=== PATIENT | male | born 1950 | race Caucasian/White ===

== ENCOUNTER 2016-07-16 20:32 | Emergency (ER) | payer MEDICARE ==
[~2016-07-16] VITALS: Ht 188 cm; Wt 95.0 kg
[~2016-07-16 20:32] MED LIST: ANDR4DIS TD; ATOM60 PO; CLOP75 PO; DEPA250T PO; DIOV320T PO; EZET10 PO; GEOD60CA PO; KLOR20TA6 PO; LEVO.1 PO; LORT5TAB PO; METF500 PO; NICO21T TD; PRIL40CA PO; ROSU5 PO; SUCR1TAB PO; TOPI50TA4 PO; TOPR25TA2 PO; VENL75XR PO
[2016-07-16] MEDS ORDERED: SODIUM CHLOR 0.9% 1000 ML INJ 1,000 ML IV SCH (20:34)
[2016-07-16 20:42] VITALS: BP 164/79; PULSE 102; RESP 20; TEMP 98.2; O2SAT 96
--- NOTE | 2016-07-16 20:43 | PD ---
HPI Chief Complaint: fall Time Seen by Provider: 20:40 Travel History International Travel<30 days: No Contact w/Intl Traveler<30days: No History of Present Illness HPI Patient comes emergency Department after having a witnessed trip and fall shortly prior to arrival. Denies any loss of consciousness. Patient denies any pain anywhere. Patient states he hit the back of his head. Patient does admit to drinking alcohol today. When asked how much he drank he says "too much ". Patient does report being on Plavix as well as aspirin daily. Denies any chest pain, shortness of breath, headache, change in vision, numbness or tingling anywhere, loss of bowel or bladder, abdominal pain, neck pain, or back pain. PFSH Past Medical History Arthritis: No Asthma: No Autoimmune Disease: No Anxiety: Yes Depression: Yes Heart Rhythm Problems: No Cancer: Yes (throat cancer) Cardiovascular Problems: Yes High Cholesterol: Yes Chemotherapy: No Chest Pain: No Congestive Heart Failure: No COPD: No Cerebrovascular Accident: No Diabetes: Yes (metformin) Diminished Hearing: Yes (BILATERAL HEARING AIDS ) Endocrine: Yes (low testerone levels on medication) GERD: Yes Genitourinary: No Hiatal Hernia: No Immune Disorder: No Insomnia: Yes Kidney Stones: No Musculoskeletal: Yes Psychiatric: Yes (takes geodon and effoxor) Reproductive: No Migraines: Yes Radiation Therapy: Yes Renal Failure: No Seizures: No Sickle Cell Disease: No Sleep Apnea: Yes (has bipap) Thyroid Disease: Yes (on synthroid) Ulcer: No Past Surgical History Abdominal Surgery: No AICD: No Arteriovenous Shunt: No Cardiac Surgery: Yes (carotid stents) Ear Surgery: No Endocrine Surgery: No Eye Surgery: No Genitourinary Surgery: No Gynecologic Surgery: No Insulin Pump: No Joint Replacement: No Oral Surgery: Yes (throat cancer removal 1999) Pacemaker: No Thoracic Surgery: No Social History Alcohol Use: No Tobacco Use: Yes (1 PPD) Substance Use: No Allergies-Medications (Allergen,Severity, Reaction): Coded Allergies: No Known Allergies (Verified , 07/16/16) Reported Meds & Prescriptions Reported Meds & Active Scripts Active Habitrol 21 mg/24 Hr Patch (Nicotine) 1 Patch Patch 1 Patch TD DAILY Effexor-Xr (Venlafaxine HCl) 75 Mg Caper 300 Mg PO DAILY Lortab 5/500 (Acetaminophen/Hydrocodone Bitart) 5 Mg/500 Mg Tab 1 Tab PO Q6HPRN FOR PAIN Reported Androderm (Testosterone) 4 Mg/24 Hr Dis 1 Patch TD DAILY Synthroid 100 mcg (Levothyroxine Sodium) 100 Mcg Tab 100 Mcg PO DAILY Prilosec 40 mg cap (Omeprazole) 40 Mg Cap 40 Mg PO DAILY Glucophage 500 mg (Metformin HCl) 500 Mg Tab 500 Mg PO BIDPC Klor-Con M20 (Potassium Chloride Microencaps) 20 Meq Tab 20 Meq PO Sucralfate 1 Gm Tab 1 Gm PO TIDACHS Take with water on an empty stomach. To reduce the potential of adversely affecting the absorption of other drugs, take other drugs 2 hours prior to Sucralfate. Geodon (Ziprasidone) 60 Mg Cap 60 Mg PO HS Topamax (Topiramate) 50 Mg Tab 50 Mg PO BID Diovan 320 mg (Valsartan) 320 Mg Tab 320 Mg PO DAILY Zetia (Ezetimibe) 10 Mg Tab 10 Mg PO DAILY Toprol Xl (Metoprolol Succinate) 25 Mg Tabcr 0 PO DAILY UNKNOWN DOSE Strattera (Atomoxetine HCl) 60 Mg Cap 75 Mg PO BID Crestor (Rosuvastatin Calcium) 5 Mg Tab 0 PO DAILY UNKNOWN DOSE Plavix (Clopidogrel Bisulfate) 75 Mg Tab 75 Mg PO DAILY Depakote (Divalproex Sodium) 250 Mg Yasmin 300 Mg PO DAILY Review of Systems ROS Limitations: Intoxication Except as stated in HPI: all other systems reviewed are Neg Physical Exam Exam Limitations: Intoxication Narrative GENERAL: Well-developed, well nourished, in no acute distress, and non-ill appearing. SKIN: Focused skin assessment warm and dry. No traumatic lesions noted. HEAD: Atraumatic. Normocephalic. EYES: Pupils equal and round. EOMI. No scleral icterus. No injection or drainage. ENT: No nasal bleeding or discharge. Mucous membranes pink and moist. No crepitus, step-off, Tenderness, or flattening throughout the face or cheek bones. NECK: Trachea midline. C-collar in place. CARDIOVASCULAR: Regular rate and rhythm. No murmur appreciated. RESPIRATORY: No accessory muscle use. No respiratory distress. Clear to auscultation. Breath sounds equal bilaterally. GASTROINTESTINAL: Abdomen soft, non-tender, nondistended. Hepatic and splenic margins not palpable. No pulsatile mass. MUSCULOSKELETAL: No obvious deformities. No clubbing. No cyanosis. No edema. Full range of motion is able to move all extremities without difficulty. NEUROLOGICAL: Awake and alert. No obvious cranial nerve deficits. Motor grossly within normal limits. Normal speech. PSYCHIATRIC: Appropriate mood and affect; insight and judgment normal. Data Data Last Documented VS Vital Signs Date Time Temp Pulse Resp B/P Pulse Ox O2 Delivery O2 Flow Rate FiO2 07/16/16 23:03 105 22 167/82 99 Room Air 07/16/16 20:46 2 07/16/16 20:42 98.2 Orders Basic Metabolic Panel (Bmp) (07/16/16 20:34) Complete Blood Count With Diff (07/16/16 20:34) Prothrombin Time / Inr (Pt) (07/16/16 20:34) Act Partial Throm Time (Ptt) (07/16/16 20:34) Iv Access Insert/Monitor (07/16/16 20:34) Ecg Monitoring (07/16/16 20:34) Oximetry (07/16/16 20:34) Sodium Chlor 0.9% 1000 Ml Inj (Ns 1000 M (07/16/16 20:34) Sodium Chloride 0.9% Flush (Ns Flush) (07/16/16 20:45) Ct Brain W/O Iv Contrast(Rout) (07/16/16 ) Ct Facial Bones W/O Iv Cont (07/16/16 ) Ct Cerv Spine W/O Contrast (07/16/16 ) Alcohol (Ethanol) (07/16/16 20:34) Lorazepam (Ativan) (07/16/16 22:30) Labs Laboratory Tests Test 07/16/16 20:35 White Blood Count 5.9 TH/MM3 Red Blood Count 6.47 MIL/MM3 Hemoglobin 19.9 GM/DL Hematocrit 57.6 % Mean Corpuscular Volume 89.0 FL Mean Corpuscular Hemoglobin 30.8 PG Mean Corpuscular Hemoglobin 34.6 % Concent Red Cell Distribution Width 15.1 % Platelet Count 157 TH/MM3 Mean Platelet Volume 8.5 FL Neutrophils (%) (Auto) 75.2 % Lymphocytes (%) (Auto) 16.5 % Monocytes (%) (Auto) 7.5 % Eosinophils (%) (Auto) 0.3 % Basophils (%) (Auto) 0.5 % Neutrophils # (Auto) 4.4 TH/MM3 Lymphocytes # (Auto) 1.0 TH/MM3 Monocytes # (Auto) 0.4 TH/MM3 Eosinophils # (Auto) 0.0 TH/MM3 Basophils # (Auto) 0.0 TH/MM3 CBC Comment DIFF FINAL Differential Comment Prothrombin Time 10.7 SEC Prothromb Time International 1.0 RATIO Ratio Activated Partial 27.9 SEC Thromboplast Time Sodium Level 139 MEQ/L Potassium Level 3.6 MEQ/L Chloride Level 98 MEQ/L Carbon Dioxide Level 24.4 MEQ/L Anion Gap 17 MEQ/L Blood Urea Nitrogen 11 MG/DL Creatinine 1.23 MG/DL Estimat Glomerular Filtration 59 ML/MIN Rate Random Glucose 98 MG/DL Calcium Level 8.7 MG/DL Ethyl Alcohol Level 339 MG/DL MDM Medical Decision Making Medical Screen Exam Complete: Yes Emergency Medical Condition: Yes Differential Diagnosis Fracture, strain, closed head injury, intracranial hemorrhage, other Narrative Course Patient was seen and examined. Labs and radiological studies were obtained and reviewed. Discussed patient with Dr. Sutherland, who is in agreement with plan of care and disposition. Patient will be monitored in the emergency department until clinically sober and able to ambulate on their own or until a sober responsible adult comes to pick them up. RN is aware of this. Diagnosis Primary Impression: Closed head injury Qualified Code: S09.90XA - Closed head injury, initial encounter Additional Impressions: Alcohol intoxication Qualified Code: F10.129 - Alcohol intoxication, with unspecified complication Bilateral carotid artery stenosis Fall Qualified Code: W19.XXXA - Fall, initial encounter Patient Instructions: Abuse of Alcohol (ED), Fall Prevention (DC), General Instructions, Head Injury (ED) Additional Instructions: Follow-up with your primary care physician for reevaluation in one to 2 days. Cut back on drinking. Return to the emergency department if symptoms get worse. Disposition: 01 DISCHARGE HOME Condition: Stable Sushil Farr Jul 16, 2016 20:43
[2016-07-16] MEDS ORDERED: SODIUM CHLORIDE 0.9% FLUSH 10 ML FLUSH IV FLUSH PRN (20:45)
[2016-07-16 20:47] LABS: AUTOMATED NEUTROPHIL # 4.4 TH/MM3 (1.8-7.7); BASOPHIL % 0.5 % (0.0-2.0); EOSINOPHIL % 0.3 % (0.0-4.0); HEMATOCRIT 57.6 % (39.0-51.0); HEMO FLAGS DIFF FINAL; LYMPH % 16.5 % (9.0-44.0); MEAN CORPUSCULAR HEMOGLOBIN 30.8 PG (27.0-34.0); MEAN CORPUSCULAR HGB CONC 34.6 % (32.0-36.0); MONO % 7.5 % (0.0-8.0); NEUT % 75.2 % (16.0-70.0); PLATELET COUNT 157 TH/MM3 (150-450); RED BLOOD COUNT 6.47 MIL/MM3 (4.50-5.90); RED CELL DISTRIBUTION WIDTH 15.1 % (11.6-17.2); WHITE BLOOD COUNT 5.9 TH/MM3 (4.0-11.0)
[2016-07-16 20:59] LABS: APTT (PATIENT) 27.9 SEC (24.3-30.1); PROTHROMBIN TIME - PATIENT 10.7 SEC (9.8-11.6)
[2016-07-16 21:07] LABS: BICARBONATE 24.4 MEQ/L (21.0-32.0); POTASSIUM 3.6 MEQ/L (3.5-5.1)
--- NOTE | 2016-07-16 21:19 | RADRPT ---
EXAM DATE/TIME: 07/16/2016 21:07 [facility] COMPARISON: CT BRAIN W/O CONTRAST, October 18, 2015, 15:24. INDICATIONS : Trauma; fall RADIATION DOSE: 61.23 CTDIvol (mGy) MEDICAL HISTORY : Cardiovascular disease. Hypertension. Carcinoma, not otherwise specified. SURGICAL HISTORY : Non-responsive. ENCOUNTER: Initial ACUITY: 1 day PAIN SCALE: 5/10 LOCATION: Bilateral cranial TECHNIQUE: Multiple contiguous axial images were obtained of the head. Using automated exposure control and adj ustment of the mA and/or kV according to patient size, radiation dose was kept as low as reasonably a chievable to obtain optimal diagnostic quality images. FINDINGS: CEREBRUM: The ventricles are normal for age. No evidence of midline shift, mass lesion, hemorrhage or acute in farction. No extra-axial fluid collections are seen. POSTERIOR FOSSA: The cerebellum and brainstem are intact. The 4th ventricle is midline. The cerebellopontine angle i s unremarkable. EXTRACRANIAL: The visualized portion of the orbits is intact. SKULL: The calvaria is intact. No evidence of skull fracture. CONCLUSION: Normal examination. Colt Tijerina Jr., MD on July 16, 2016 at 21:15 Board Certified Radiologist. This report was verified electronically.
--- NOTE | 2016-07-16 21:28 | RADRPT ---
EXAM DATE/TIME: 07/16/2016 21:07 [facility] COMPARISON: No previous studies available for comparison. INDICATIONS : Trauma; fall. RADIATION DOSE: 42.99 CTDIvol (mGy) MEDICAL HISTORY : Carcinoma, not otherwise specified. Cardiovascular disease Hypertension. SURGICAL HISTORY : None. ENCOUNTER: Initial ACUITY: 1 day PAIN SCALE: 5/10 LOCATION: Bilateral cervical TECHNIQUE: Volumetric scanning of the cervical spine was performed. Multiplanar reconstructions in the sagittal, coronal and oblique axial planes were performed. Using automated exposure control and adjustment o f the mA and/or kV according to patient size, radiation dose was kept as low as reasonably achievable to obtain optimal diagnostic quality images. FINDINGS: The study is motion degraded. VERTEBRAE: Normal vertebral body height. ALIGNMENT: There is a curvature of the cervical spine which is felt to be positional in nature. Bilateral carotid artery stents. C2-C3: A central disc bulge without abutment of the cord or central canal stenosis. Bony uncovertebral hyper trophy without neural foraminal narrowing. C3-C4: A central disc bulge without abutment of the cord or central canal stenosis. Prominent bony uncoverte bral hypertrophy on the left with significant narrowing of the neural foramen. The right is patent. C4-C5: A broad-based disc osteophyte complex without abutment of the cord. Narrowing of the lateral recesses bilaterally. Bony uncovertebral hypertrophy generate right neural foraminal narrowing. The left is p atent. C5-C6: There is a broad-based disc osteophyte complex that flattens the ventral portion of the cord and narr ows the lateral recesses bilaterally. Bony uncovertebral hypertrophy narrows both neural foramen. C6-C7: A broad-based disc osteophyte complex abuts the ventral portion of the cord and narrows the lateral r ecesses bilaterally. Prominent bony uncovertebral hypertrophy significantly narrows both neural hanh en. C7-T1: The bony spinal canal is normal in size. No evidence of disc bulge or herniation. The neural forami na are bilaterally patent. CONCLUSION: 1. No acute abnormality. 2. Pronounced multilevel degenerative changes as detailed above. 3. Bilateral carotid artery stents. Colt Tijerina Jr., MD on July 16, 2016 at 21:22 Board Certified Radiologist. This report was verified electronically.
--- NOTE | 2016-07-16 21:46 | RADRPT ---
EXAM DATE/TIME: 07/16/2016 21:07 [facility] COMPARISON: No previous studies available for comparison. INDICATIONS : Trauma; fall. RADIATION DOSE: 56.75 CTDIvol (mGy) MEDICAL HISTORY : Cardiovascular disease. Hypertension. SURGICAL HISTORY : None. ENCOUNTER: Initial ACUITY: 1 day PAIN SCORE: 5/10 LOCATION: Bilateral facial TECHNIQUE: Volumetric scanning of the facial bones was performed. Using automated exposure control and adjustme nt of the mA and/or kV according to patient size, radiation dose was kept as low as reasonably achiev able to obtain optimal diagnostic quality images. FINDINGS: Motion degraded. ORBITS: The orbital and infraorbital osseous structures are intact. The retroconal structures have a normal configuration. No radiopaque foreign bodies are seen. NASAL BONE: The nasal bone and maxillary spine are intact ZYGOMATIC ARCHES: Symmetric without evidence of fracture. SINUSES: The maxillary, ethmoid and frontal sinuses are intact. No air-fluid levels seen. NASAL CAVITY: The nasal septum is intact and midline. The lacrimal ducts are intact. SOFT TISSUES: No radiopaque foreign bodies seen. No soft-tissue swelling is seen. INTRACRANIAL: No intracranial air seen. CRIBIFORM PLATE: Grossly intact. CONCLUSION: 1. Motion degraded exam. 2. No acute abnormality. Colt Tijerina Jr., MD on July 16, 2016 at 21:41 Board Certified Radiologist. This report was verified electronically.
[2016-07-16] MEDS ORDERED: LORazepam 1 MG TAB PO ONE (22:30)
[2016-07-16 23:03] VITALS: BP 167/82; PULSE 105; RESP 22; O2SAT 99
== END 2016-07-17 05:30 | disposition home or self-care (01) ==
LOC: NEPE 20:32 → NEPD 07-17 05:30
DX: S09.90XA Unspecified injury of head, initial encounter (principal); F10.129 Alcohol abuse with intoxication, unspecified; I65.23 Occlusion and stenosis of bilateral carotid arteries; E11.9 Type 2 diabetes mellitus without complications; G47.30 Sleep apnea, unspecified; F17.210 Nicotine dependence, cigarettes, uncomplicated; Y90.8 Blood alcohol level of 240 mg/100 ml or more; W01.0XXA Fall on same level from slipping, tripping and stumbling without subsequent striking against object, initial encounter; Z79.84 Long term (current) use of oral hypoglycemic drugs
CPT/HCPCS: 70450; 70486; 72125; 80048; 80307; 85025; 85610; 85730; 99284; J7030

== ENCOUNTER 2016-08-06 15:15 | Inpatient (IN) | payer MEDICARE ==
[~2016-08-06] VITALS: Ht 188 cm; Wt 79.8 kg
[2016-08-06 18:39] VITALS: BP 143/83; PULSE 64; RESP 16; TEMP 98; O2SAT 98
[2016-08-06] MEDS ORDERED: ACETAMINOPHEN 325 MG TAB PO PRN (18:45)
[2016-08-06] MEDS ORDERED: BENZTROPINE MESYLATE 2 MG/2 ML VIAL IM PRN (18:45)
[2016-08-06] MEDS ORDERED: BENZTROPINE MESYLATE 1 MG TAB PO PRN (18:45)
[2016-08-06] MEDS ORDERED: MAGNESIUM HYDROXIDE SUSP 30 ML CUP PO PRN (18:45)
[2016-08-06] MEDS ORDERED: GLUCAGON 1 MG/ML VIAL OTHER PRN (18:45)
[2016-08-06] MEDS ORDERED: ALUMINUM/MAGNESIUM/SIMETH 30 ML CUP PO PRN (18:45)
[2016-08-06] MEDS ORDERED: DEXTROSE 50% IN WATER 50 ML VIAL(D50) IV PUSH PRN (18:45)
[2016-08-06] MEDS: INSULIN ASPART SUPPLEMENTAL SCALE SQ SCH (20:39)
[2016-08-06] MEDS: hydrOXYzine HCL 50 MG TAB PO PRN ×2 (20:41→20:56)
[2016-08-06] MEDS: metroNIDAZOLE 500 MG TAB PO SCH (21:07)
[2016-08-07] MEDS ORDERED: ATOM60 PO ×2 (03:37→04:39)
[2016-08-07] MEDS ORDERED: PLAV75TA29 PO ×2 (03:39→04:41)
[2016-08-07] MEDS ORDERED: DIVA250ER PO ×3 (03:43→04:43)
[2016-08-07] MEDS ORDERED: METF500T PO ×2 (03:49→04:45)
[2016-08-07] MEDS ORDERED: ZETI10TA5 PO ×2 (03:54→04:28)
[2016-08-07] MEDS ORDERED: TOPR25TA PO (03:58)
[2016-08-07] MEDS ORDERED: OMEP40CA2 PO ×2 (04:05→04:09)
[2016-08-07] MEDS ORDERED: POTA20TA5 PO ×2 (04:13→04:36)
[2016-08-07] MEDS ORDERED: SUCR1TAB PO (04:50)
[2016-08-07] MEDS ORDERED: LEVO.1 PO (04:51)
[2016-08-07] MEDS ORDERED: ANDR4DIS T-DERMAL (04:53)
[2016-08-07] MEDS ORDERED: METO25TA6 PO (04:56)
[2016-08-07] MEDS ORDERED: TOPA50TA7 PO (04:57)
[2016-08-07] MEDS ORDERED: DIOV320T PO (04:58)
[2016-08-07] MEDS ORDERED: GEOD60CA PO (05:00)
[2016-08-07 05:33] VITALS: BP 156/73; PULSE 66; RESP 18; TEMP 97.8
[2016-08-07 06:00] VITALS: BP 156/73; PULSE 66; RESP 18; TEMP 97.8; O2SAT 96
[2016-08-07] MEDS: metroNIDAZOLE 500 MG TAB PO SCH ×3 (06:09→21:09)
[2016-08-07] MEDS: LEVOTHYROXINE SODIUM 100 MCG TAB PO SCH (06:09)
[2016-08-07] MEDS: INSULIN ASPART SUPPLEMENTAL SCALE SQ SCH ×4 (06:11→21:00)
[2016-08-07] MEDS: REMOVE OLD PATCH T-DERMAL SCH (09:00)
[2016-08-07] MEDS: CLOPIDOGREL 75 MG TAB PO SCH (09:16)
[2016-08-07] MEDS: metFORMIN HCL 500 MG TAB PO SCH ×2 (09:16→17:13)
[2016-08-07] MEDS: METOPROLOL SUCCINATE 25 MG EXTENDED RELEASE TAB PO SCH (09:16)
[2016-08-07] MEDS: NICOTINE 21 MG/24 HR PATCH T-DERMAL SCH (09:17)
[2016-08-07 09:37] LABS: AUTOMATED NEUTROPHIL # 4.5 TH/MM3 (1.8-7.7); BASOPHIL % 0.5 % (0.0-2.0); EOSINOPHIL % 0.5 % (0.0-4.0); HEMATOCRIT 49.2 % (39.0-51.0); HEMO FLAGS DIFF FINAL; LYMPH % 16.7 % (9.0-44.0); MEAN CELL VOLUME 90.1 FL (80.0-100.0); MEAN CORPUSCULAR HEMOGLOBIN 30.1 PG (27.0-34.0); MEAN CORPUSCULAR HGB CONC 33.5 % (32.0-36.0); NEUT % 74.3 % (16.0-70.0); PLATELET COUNT 159 TH/MM3 (150-450); RED BLOOD COUNT 5.46 MIL/MM3 (4.50-5.90); RED CELL DISTRIBUTION WIDTH 14.6 % (11.6-17.2); WHITE BLOOD COUNT 6.1 TH/MM3 (4.0-11.0)
[2016-08-07 10:22] LABS: ALT (GPT) 58 U/L (12-78); ANION GAP 8 MEQ/L (5-15); AST (GOT) 53 U/L (15-37); BICARBONATE 27.6 MEQ/L (21.0-32.0); BLOOD UREA NITROGEN 17 MG/DL (7-18); CHLORIDE 105 MEQ/L (98-107); GLOMERULAR FILTRATION RATE 76 ML/MIN (>89); POTASSIUM 3.1 MEQ/L (3.5-5.1); SODIUM (NA) 141 MEQ/L (136-145)
[2016-08-07 10:31] LABS: ALKALINE PHOSPHATASE 77 U/L (45-117); HDL CHOLESTEROL 37.1 MG/DL (40.0-60.0); LDL CHOLESTEROL 39 MG/DL (0-99); TOTAL BILIRUBIN ADULT 0.6 MG/DL (0.2-1.0)
[2016-08-07] MEDS ORDERED: ALUMINUM/MAGNESIUM/SIMETH 30 ML CUP PO PRN (12:45)
[2016-08-07] MEDS ORDERED: MAGNESIUM HYDROXIDE SUSP 30 ML CUP PO PRN (12:45)
[2016-08-07] MEDS ORDERED: ACETAMINOPHEN 325 MG TAB PO PRN (12:45)
--- NOTE | 2016-08-07 13:29 | HHI.HP ---
Provisional Diagnosis Admission Date August 06, 2016 at 15:15 [place] I. 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 Express and informed consent means consent voluntarily given in writing, by a competent person, after sufficient explanation and disclosure of the subject matter involved to enable the person to make a knowing and willful decision without any element of force, fraud, deceit, duress, or other form of constraint or coercion. This person is 18 years of age or older, is not now known to be incompetent to consent to treatment with a guardian advocate, and does not have a health care surrogate or proxy currently making medical treatment decisions. I have found this person to be one of the following: [] Competent to provide express and informed consent, as defined above, for voluntary admission to this facility and is competent to provide express and informed consent for treatment. He/she has the consistent capacity to make well reasoned, willful, and knowing decisions concerning his or her medical or mental health treatment. The person fully and consistently understands the purpose of the admission for examination/placement and is fully capable of personally exercising all rights assured [place] [] Incompetent to provide express and informed consent to voluntary admission, and this is incompetent to provide express and informed consent to treatment. The person must be transferred to involuntary status and a petition for a guardian advocate filed with the Circuit Court. [xx] Refusing to provide express and informed consent to voluntary admission but is competent to provide express and informed consent for treatment. The person must be discharged or transferred to involuntary status. Form shall be completed within 24 hours of a person's arrival at the receiving facility and filed in the clinical record of each person: 1. Admitted on a voluntary basis 2. Permitted to provide express and informed consent to his/her own treatment 3. Allowed to transfer from involuntary to voluntary status 4. Prior to permitting a person to consent to his or her own treatment after having been previously found incompetent to consent to treatment. History of Present Illness Capacity: Lacks Capacity (patient lacks capacity to sign voluntary admission, patient has capacity to consent for medications) HPI Patient is a 66-year-old white male who comes here as a transfer from [facility] after being admitted there under Esposito act on 07/28/16. Patient was found by his estranged in his bathtub unconscious, was intubated at the scene by the paramedics, was extubated about 2-3 days later with diagnosis of sepsis and acute respiratory failure. There is a Esposito act was initiated on 08/02/16 at 1:[address] Lackey stating suicidal tendencies states second intentional suicide attempt since September 2059. Ear toxicology that facility positive for benzodiazepines. Of interest patient was admitted to [facility] 10/18/15 through for overdose of baclofen. . Patient seen in consultation at that time by Dr. Canales cool allow patient to be discharged once medically stable with supportive patient's at that time. Patient was subsequently seen for a fall in our ED on 07/16/16 if that time blood alcohol level of 339. Patient giving vague history of being at [facility] detox prior to the overdose. He also gave long history of alcohol misuse with daily drinking, so low drinking, a.m. drinking, passing out spells, a states she has been in detox and in rehabilitation in the past also. He acknowledges misuse of opiates in the past. He denies physical or sexual abuse as a child denies mental illness in his family of origin. He does adamantly refused to acknowledge these is suicide attempts stating he uses the baclofen to get high and that he only slept in his bathtub. However he does acknowledge a history of depression that he does see a psychiatrist through [facility]. 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 In any event at this time patient does meet criteria for involuntary psychiatric hospitalization under the Esposito act I'll do first opinion requests second opinion. I feel he does have capacity to sign for his medications. We will have hospitalist consult with us of this gentleman. We'll continue him on his trazodone that he states he needs for sleep at 200 mg at bedtime. We'll continue other medications per the med reconciliation also. Level counselor attempt to reach patient's to arrange a meeting for tomorrow morning to discuss diagnosis treatment and recommendations upon discharge Review of Systems Constitutional: DENIES: Diaphoretic episodes, Fatigue, Fever, Weight gain, Weight loss, Chills, Dizziness, Change in appetite, Night Sweats Endocrine: DENIES: Heat/cold intolerance, Polydipsia, Polyuria, Polyphagia Eyes: DENIES: Blurred vision, Diplopia, Eye inflammation, Eye pain, Vision loss , Photosensitivity, Double Vision Ears, nose, mouth, throat: DENIES: Tinnitus, Hearing loss, Vertigo, Nasal discharge, Oral lesions, Throat pain, Hoarseness, Ear Pain, Running Nose, Epistaxis, Sinus Pain, Toothache, Odynophagia Respiratory: DENIES: Apneas, Cough, Snoring, Wheezing, Hemoptysis, Sputum production, Shortness of breath Cardiovascular: DENIES: Chest pain, Palpitations, Syncope, Dyspnea on Exertion , PND, Lower Extremity Edema, Orthopnea, Claudication Gastrointestinal: DENIES: Abdominal pain, Black stools, Bloody stools, Constipation, Diarrhea, Nausea, Vomiting, Difficulty Swallowing, Anorexia Genitourinary: DENIES: Sexual dysfunction, Urinary frequency, Urinary incontinence, Urgency, Hematuria, Dysuria, Nocturia, Penile Discharge, Testicular Pain, Testicular Swelling Musculoskeletal: DENIES: Joint pain, Muscle aches, Stiffness, Joint Swelling, Back pain, Neck pain Integumentary: DENIES: Abnormal pigmentation, Nail changes, Pruritus, Rash Hematologic/lymphatic: DENIES: Bruising, Lymphadenopathy Immunologic/allergic: DENIES: Eczema, Urticaria Neurologic: DENIES: Abnormal gait, Headache, Localized weakness, Paresthesias, Seizures, Speech Problems, Tremor, Poor Balance Psychiatric: COMPLAINS OF: Depression Past Psych History Psychological trauma history Denies physical or sexual abuse Violence risk - others (6 mos) Low Violence risk - self (6 mos) 2 suicide attempts within 1 year Substance Abuse History Drugs/Alcohol past 12 months Active alcohol abuser Past Family Social History Coded Allergies: No Known Allergies (Verified , 07/16/16) Past Medical History Multiple complex please see MedSur assessment Active Scripts Nicotine (Habitrol 21 mg/24 Hr Patch)1 Patch Patch1 Patch TD DAILY #30 PATCH Prov:Estephania Lemos MD 10/23/15 Venlafaxine Hcl (Effexor-Xr)75 Mg [id number] Mg PO DAILY #30 CAP.SR Prov:Estephania Lemos MD 10/23/15 Hydrocodone-Acetaminophen (Lortab 500)5 Mg/500 Mg Tab1 Tab PO Q6HPRN #20 FOR PAIN Prov:Kong Mathis MD 07/19/09 Reported Medications Ziprasidone (Geodon)60 Mg Cap60 Mg PO HS 08/07/16 Valsartan (Diovan)320 Mg [id number] Mg PO DAILY 08/07/16 Topiramate (Topamax)50 Mg Tab50 Mg PO BID 08/07/16 Metoprolol Succinate ER 24 HR 25 Mg Tab25 Mg PO DAILY 08/07/16 Testosterone Patch (Androderm Patch)4 Mg/24 Hr Patch1 Patch T-DERMAL HS 08/07/16 Levothyroxine (Synthroid)100 Mcg Won863 Mcg PO DAILY 08/07/16 Sucralfate 1 Gm Tab1 Gm PO TIDACHS on empty stomach 08/07/16 Metformin 500 Mg [id number] Mg PO BIDPC With meals 08/07/16 Divalproex ER (Depakote ER)250 Mg [id number] Mg PO DAILY 08/07/16 Clopidogrel (Plavix)75 Mg Tab75 Mg PO DAILY 08/07/16 Atomoxetine (Strattera)60 Mg Cap75 Mg PO BID 08/07/16 Potassium Chloride Microencaps 20 Meq Tab20 Meq PO 08/07/16 Ezetimibe (Zetia)10 Mg Tab10 Mg PO DAILY 08/07/16 Omeprazole 40 Mg Cap40 Mg PO DAILY #30 CAP Ref 0 08/07/16 Current Medications Medications (Trade) Dose Ordered Sig/Jackie Route Start Time Stop Time Status Last Admin (D50w (Vial) Inj) 25 ml UNSCH PRN IV PUSH 08/06/16 18:45 (Glucagon Inj) 1 mg UNSCH PRN OTHER 08/06/16 18:45 (Tylenol) 650 mg Q4H PRN PO 08/06/16 18:45 (Milk Of Magnesia Liq) 30 ml DAILY PRN PO 08/06/16 18:45 (Mag-Al Plus Susp Liq) 30 ml Q6H PRN PO 08/06/16 18:45 (Habitrol 21 Mg Patch.24 Hr) 1 patch DAILY T-DERMAL 08/07/16 09:00 08/07/16 09:17 (Atarax) 25 mg Q6H PRN PO 08/06/16 18:45 08/06/16 20:56 (Cogentin) 1 mg Q12H PRN PO 08/06/16 18:45 (Cogentin Inj) 1 mg Q12H PRN IM 08/06/16 18:45 Miscellaneous Information 1 DAILY T-DERMAL 08/07/16 09:00 (Synthroid) 100 mcg DAILY@0600 PO 08/07/16 06:00 08/07/16 06:09 (Toprol Xl) 25 mg DAILY PO 08/07/16 09:00 08/07/16 09:16 (Glucophage) 500 mg BIDPC PO 08/07/16 09:00 08/07/16 09:16 (Plavix) 75 mg DAILY PO 08/07/16 09:00 08/07/16 09:16 (Flagyl) 500 mg Q8HR PO 08/06/16 22:00 08/13/16 21:59 08/07/16 06:09 Family History Patient denies mental health issues and family of origin Social History Patient was his second of 7 years Patient's Strengths (min. 2) Patient verbal cooperative irritable access healthcare Physical Exam Patient seen screen a [facility] exam reviewed and agreed with vital signs blood pressure 156/73 pulse 66 respirations 18 Vital Signs Vital Signs Date Time Temp Pulse Resp B/P Pulse Ox O2 Delivery O2 Flow Rate FiO2 08/07/16 06:00 97.8 66 18 156/73 96 I/O 08/06/16 08/06/16 08/07/16 08:00 16:00 00:00 Intake Total 240 ml Balance 240 ml Mental Status Examination Alert oriented thin slender balding white male with kyle hair agreed.. Speaking with a somewhat hoarse whisper. He is calm cooperative is somewhat guarded. With fair eye contact Appearance Somewhat disheveled Speech: Slow, Other (course) Orientation: x3 Memory: Unremarkable Thought Process: Logical, Organized Thought Content: Unremarkable Language Sami [employer] Knowledge Fair Hallucination Type: None Attention and Concentration: Other (fair) Suicidal Ideation: No (denies) Previous Suicide Attempts: Yes Homicidal Ideation: No (denies) Previous Homicide Attempts: No (denies) Insight: Poor Judgment: Poor Affect: Other (decreased range and intensity) Mood: Sad Motor Activity: Normal gait Assessment & Plan Problem List: (1) Alcohol dependence ICD Code: F10.20 (2) Major depressive disorder, recurrent severe without psychotic features ICD Code: F33.2 Assessment & Plan Estimated LOS: I've to 7 days patient meets criteria for involuntary psychiatric hospitalization. I'll do first opinion request second opinion. I feel he has capacity to sign for medications. We'll attempt to reach patient's to arrange a meeting for tomorrow morning. Discharge Planning To be determined Request HC Surrog/Guard Advoc?: No Fredi Higginbotham MD August 07, 2016 13:29
--- NOTE | 2016-08-07 14:30 | PD.CONS ---
HPI Service [facility] Hospitalists Consult Requested By Psychiatry team Reason for Consult S/p Baclofen OD. Assist in management of medical condition. Primary Care Physician Ricardo Ramos, Diagnoses: History of Present Illness Patient 65 year old male with past medical history of throat cancer status post resection and radiation in 1999, hypothyroidism, diabetes mellitus, depression who came in as a transfer from [facility] after being admitted under Esposito act on 07/28/16. As per review of records, patient was found by his estranged in his bathtub unconscious, was intubated at the scene by paramedics, was extubated about 2-3 days later with diagnosis of sepsis and acute respiratory failure. Initiation of Esposito act 08/02/16 secondary to suicidal indication/tendencies, states second intentional suicide attempt since September 2015. Urine toxicology from previous hospital showed positive for benzodiazepines. Patient was admitted to [facility] 10/18/15 secondary to baclofen overdose, 27 missing pills as per according to review of the records. Patient was also seen in the hospital ED with alcohol blood level 339. He is now admitted to inpatient psychiatry unit for further evaluation. Consulted for medical management. Patient seen and examined. Reports he is doing well. States that he doesn't plan to hurt himself he just took baclofen to relieve his pain. Patient admits to medical condition and having hypothyroidism, diabetes. He also admitted to alcohol use about 6 packs of beer or 2 pints of hard liquor. States he was at [facility] for detox, wherein his last drink was approximately about 1-2 weeks ago. Patient denies any withdrawal seizures or episode of any seizures from alcohol use. Denies pain and discomfort. Denies SOB/ dyspnea. Denies chest pain, palpitations, headaches, dizziness. Denies fevers, chills, n/ v/d. Denies hematuria, dysuria. Review of Systems Except as stated in HPI: all other systems reviewed are Neg Past Family Social History Allergies: Coded Allergies: No Known Allergies (Verified , 07/16/16) Past Medical History Diabetes Hypothyroidism Throat cancer status post radiation 1999 Depression Past Surgical History Right knee surgery Bilateral carotid Stent placement in his throat with radiation Surgery for throat cancer Reported Medications Reported Meds & Active Scripts Active Habitrol 21 mg/24 Hr Patch (Nicotine) 1 Patch Patch 1 Patch TD DAILY Effexor-Xr (Venlafaxine HCl) 75 Mg Caper 300 Mg PO DAILY Lortab 5/500 (Acetaminophen/Hydrocodone Bitart) 5 Mg/500 Mg Tab 1 Tab PO Q6HPRN FOR PAIN Reported Geodon (Ziprasidone) 60 Mg Cap 60 Mg PO HS Diovan (Valsartan) 320 Mg Tab 320 Mg PO DAILY Topamax (Topiramate) 50 Mg Tab 50 Mg PO BID Metoprolol Succinate ER 24 HR (Metoprolol Succinate) 25 Mg Tab 25 Mg PO DAILY Androderm Patch (Testosterone) 4 Mg/24 Hr Patch 1 Patch T-DERMAL HS Synthroid (Levothyroxine Sodium) 100 Mcg Tab 100 Mcg PO DAILY Sucralfate 1 Gm Tab 1 Gm PO TIDACHS on empty stomach Metformin (Metformin HCl) 500 Mg Tab 500 Mg PO BIDPC With meals Depakote ER (Divalproex Sodium) 250 Mg Yasmin 300 Mg PO DAILY Plavix (Clopidogrel Bisulfate) 75 Mg Tab 75 Mg PO DAILY Strattera (Atomoxetine HCl) 60 Mg Cap 75 Mg PO BID Potassium Chloride Microencaps 20 Meq Tab 20 Meq PO Zetia (Ezetimibe) 10 Mg Tab 10 Mg PO DAILY Omeprazole 40 Mg Cap 40 Mg PO DAILY Active Ordered Medications Current Medications Medications (Trade) Dose Ordered Sig/Jackie Route Start Time Stop Time Status Last Admin (D50w (Vial) Inj) 25 ml UNSCH PRN IV PUSH 08/06/16 18:45 (Glucagon Inj) 1 mg UNSCH PRN OTHER 08/06/16 18:45 (Habitrol 21 Mg Patch.24 Hr) 1 patch DAILY T-DERMAL 08/07/16 09:00 08/07/16 09:17 (Cogentin) 1 mg Q12H PRN PO 08/06/16 18:45 (Cogentin Inj) 1 mg Q12H PRN IM 08/06/16 18:45 Miscellaneous Information 1 DAILY T-DERMAL 08/07/16 09:00 (Synthroid) 100 mcg DAILY@0600 PO 08/07/16 06:00 08/07/16 06:09 (Toprol Xl) 25 mg DAILY PO 08/07/16 09:00 08/07/16 09:16 (Glucophage) 500 mg BIDPC PO 08/07/16 09:00 08/07/16 09:16 (Plavix) 75 mg DAILY PO 08/07/16 09:00 08/07/16 09:16 (Flagyl) 500 mg Q8HR PO 08/06/16 22:00 08/13/16 21:59 08/07/16 12:59 (Desyrel) 200 mg HS PO 08/07/16 21:00 (Tylenol) 650 mg Q4H PRN PO 08/07/16 12:45 (Milk Of Magnesia Liq) 30 ml DAILY PRN PO 08/07/16 12:45 (Mag-Al Plus Susp Liq) 30 ml Q6H PRN PO 08/07/16 12:45 (Atarax) 50 mg Q6H PRN PO 08/07/16 12:45 (Carafate) 1 gm DAILY@1100 PO 08/08/16 11:00 (Protonix) 40 mg DAILY PO 08/08/16 09:00 Family History Mother has diabetes Social History Alcohol use 6 accident beers, 2 pints of hard liquor but says he has been in detox at [facility] Denies illicit drug use Current day smoker, 1 pack per day, has been a smoker since age of 13. Physical Exam Vital Signs Vital Signs Date Time Temp Pulse Resp B/P Pulse Ox O2 Delivery O2 Flow Rate FiO2 08/07/16 06:00 97.8 66 18 156/73 96 08/07/16 05:33 97.8 66 18 156/73 08/06/16 18:39 98.0 64 16 143/83 98 Physical Exam GENERAL: This is a thin-appearing, older than stated age, well-developed patient , in no apparent distress. SKIN: No rashes, ecchymoses or lesions. Cool and dry. HEAD: Normocephalic. No temporal or scalp tenderness. EYES: Pupils equal round and reactive. No scleral icterus. No injection or drainage. ENT: Nose without bleeding. Throat without erythema. Airway patent. NECK: Trachea midline. No JVD or lymphadenopathy. Supple, nontender, no meningeal signs. CARDIOVASCULAR: Regular rate and rhythm without murmurs, gallops, or rubs. RESPIRATORY: Diminished breath sounds. No wheezes, rales, or rhonchi. GASTROINTESTINAL: Abdomen soft, non-tender, nondistended. Bowel sounds active 4. MUSCULOSKELETAL: Extremities without clubbing, cyanosis, or edema. NEUROLOGICAL: Awake and alert. Oriented to self, place. Motor and sensory grossly within normal limits. Very hoarse voice. Laboratory Laboratory Tests Test 08/07/16 09:10 White Blood Count 6.1 Red Blood Count 5.46 Hemoglobin 16.4 Hematocrit 49.2 Mean Corpuscular Volume 90.1 Mean Corpuscular Hemoglobin 30.1 Mean Corpuscular Hemoglobin 33.5 Concent Red Cell Distribution Width 14.6 Platelet Count 159 Mean Platelet Volume 9.2 Neutrophils (%) (Auto) 74.3 Lymphocytes (%) (Auto) 16.7 Monocytes (%) (Auto) 8.0 Eosinophils (%) (Auto) 0.5 Basophils (%) (Auto) 0.5 Neutrophils # (Auto) 4.5 Lymphocytes # (Auto) 1.0 Monocytes # (Auto) 0.5 Eosinophils # (Auto) 0.0 Basophils # (Auto) 0.0 CBC Comment DIFF FINAL Differential Comment Sodium Level 141 Potassium Level 3.1 Chloride Level 105 Carbon Dioxide Level 27.6 Anion Gap 8 Blood Urea Nitrogen 17 Creatinine 0.98 Estimat Glomerular Filtration 76 Rate Random Glucose 101 Calcium Level 8.7 Total Bilirubin 0.6 Aspartate Amino Transf 53 (AST/SGOT) Alanine Aminotransferase 58 (ALT/SGPT) Alkaline Phosphatase 77 Total Protein 6.1 Albumin 2.9 Triglycerides Level 121 Cholesterol Level 100 LDL Cholesterol 39 HDL Cholesterol 37.1 Cholesterol/HDL Ratio 2.69 Thyroid Stimulating Hormone 4.420 3rd Gen Result Diagram: 08/07/16 0910 08/07/16 0910 Assessment and Plan Problem List: (1) Major depressive disorder, recurrent severe without psychotic features ICD Code: F33.2 Status: Acute (2) Alcohol dependence ICD Code: F10.20 Status: Acute (3) Bilateral carotid artery stenosis ICD Code: I65.23 Status: Acute (4) Diabetes type 2, controlled ICD Code: E11.9 Status: Chronic (5) Hypertension ICD Code: I10 Status: Chronic (6) Hypothyroidism ICD Code: E03.9 Status: Chronic Assessment and Plan Patient 65 year old male with past medical history of throat cancer status post resection and radiation in 1999, hypothyroidism, diabetes mellitus, depression who came in as a transfer from [facility] after being admitted under Esposito act on 07/28/16. As per review of records, patient was found by his estranged in his bathtub unconscious, was intubated at the scene by paramedics, was extubated about 2-3 days later with diagnosis of sepsis and acute respiratory failure. Initiation of Esposito act 08/02/16 secondary to suicidal indication/tendencies, states second intentional suicide attempt since September 2015. Urine toxicology from previous hospital showed positive for benzodiazepines. Patient was admitted to [facility] 10/18/15 secondary to baclofen overdose, 27 missing pills as per according to review of the records. Patient was also seen in the hospital ED with alcohol blood level 339. He is now admitted to inpatient psychiatry unit for further evaluation. Consulted for medical management. Suicidal intention, depression - managed by psychiatry team Sepsis history, aspiration pneumonia, patient was recently intubated - DuoNeb's when necessary - Continue Flagyl - Monitor respiratory status Diabetes mellitus - Continue home medication metformin 500 mg twice a day - Insulin sliding scale. Monitor blood glucose. Monitor for hypoglycemia. - Check hemoglobin A1c Hypothyroidism - Continue with levothyroxine - Check TSH HTN - Continue metoprolol daily 25 mg, valsartan, plavix - Monitor BP Tobacco abuse - Nicotine patch Alcohol abuse - Patient has been on detox - Monitor for any signs and symptoms of withdrawals. DVT prop ambulatory Written by Cm Conrad, acting as scribe for Dr. Lemos on 08/07/16 at 14:29. This note was transcribed by joslyn ONTIVEROS. I, Dr. Estephania Lemos personally performed the history, physical exam, and medical decision making; and confirmed the accuracy of the information in the transcribed note. Authenticated by Dr. Estephania Lemos on 08/07/16 at 14:29. Code Status Full Code Discussed Condition With Patient, nursing Cm Monterroso August 07, 2016 14:30 Estephania Lemos MD August 07, 2016 20:17
[2016-08-07] MEDS ORDERED: RESP: ALBUTEROL 2.5 MG/IPRATROPIUM 0.5 MG NEB (PRN) NEB (14:45)
[2016-08-07] MEDS ORDERED: POTASSIUM CHLORIDE 25 MEQ EFFERVESCENT TAB PO ONE (16:00)
[2016-08-07 16:40] LABS: FREE T3 2.5 PG/ML (2.18-3.98); FREE T4 1.61 NG/DL (0.76-1.46)
[2016-08-07 16:41] LABS: HEMOGLOBIN A1a 1.1 %; HEMOGLOBIN A1b 1.7 %; HEMOGLOBIN Ao 83.5 %; HEMOGLOBIN LA1C 2.4 %
[2016-08-07] MEDS: VALSARTAN 160 MG TAB PO SCH (17:13)
[2016-08-07] MEDS: hydrOXYzine HCL 50 MG TAB PO PRN (17:15)
[2016-08-07 17:23] VITALS: BP 139/67; PULSE 65; RESP 18; TEMP 98
[2016-08-07] MEDS: traZODone HCL 100 MG TAB PO SCH (21:09)
[2016-08-07] MEDS: RESP: ALBUTEROL 2.5 MG/IPRATROPIUM 0.5 MG NEB (SCH) NEB (23:00)
[2016-08-08] MEDS: metroNIDAZOLE 500 MG TAB PO SCH ×3 (06:01→20:58)
[2016-08-08] MEDS: LEVOTHYROXINE SODIUM 100 MCG TAB PO SCH (06:01)
[2016-08-08] MEDS: INSULIN ASPART SUPPLEMENTAL SCALE SQ SCH ×4 (06:21→20:09)
[2016-08-08 06:50] VITALS: BP 105/54; PULSE 70; RESP 18; TEMP 97.6; O2SAT 97
[2016-08-08] MEDS: RESP: ALBUTEROL 2.5 MG/IPRATROPIUM 0.5 MG NEB (SCH) NEB ×2 (08:00→19:40)
[2016-08-08] MEDS: EZETIMIBE 10 MG TAB PO SCH (08:40)
[2016-08-08] MEDS: CLOPIDOGREL 75 MG TAB PO SCH (08:40)
[2016-08-08] MEDS: VALSARTAN 160 MG TAB PO SCH (08:40)
[2016-08-08] MEDS: NICOTINE 21 MG/24 HR PATCH T-DERMAL SCH (08:40)
[2016-08-08] MEDS: REMOVE OLD PATCH T-DERMAL SCH (08:40)
[2016-08-08] MEDS: METOPROLOL SUCCINATE 25 MG EXTENDED RELEASE TAB PO SCH (08:40)
[2016-08-08] MEDS: metFORMIN HCL 500 MG TAB PO SCH ×2 (08:40→16:52)
[2016-08-08] MEDS: PANTOPRAZOLE SOD 40 MG DELAYED RELEASE TAB PO SCH (08:40)
[2016-08-08] MEDS ORDERED: NICOTINE 21 MG/24 HR PATCH T-DERMAL SCH (09:00)
[2016-08-08] MEDS ORDERED: CLOPIDOGREL 75 MG TAB PO SCH (09:00)
[2016-08-08] MEDS ORDERED: VENLAFAXINE HCL XR 75 MG CAP PO SCH (09:00)
[2016-08-08] MEDS ORDERED: POTASSIUM CHLORIDE 25 MEQ EFFERVESCENT TAB PO ONE (10:00)
--- NOTE | 2016-08-08 10:52 | PD.CONS ---
Provisional Diagnosis Admission Date August 06, 2016 at 15:15 [place] I. 1. Major depressive disorder, recurrent severe without psychotic features 2. Polysubstance abuse (baclofen and alcohol) [place] II. Deferred [place] V. GAF is 30 presently History of Present Illness Service Psychiatry Consult Requested By Dr. Higginbotham Reason for Consult Second opinion for involuntary psychiatric hospitalization. Primary Care Physician Ricardo Ramos, DO HPI From Dr. Higginbotham's H&P: Patient is a 66-year-old white male who comes here as a transfer from [facility] after being admitted there under Esposito act on 07/28/16. Patient was found by his estranged in his bathtub unconscious, was intubated at the scene by the paramedics, was extubated about 2-3 days later with diagnosis of sepsis and acute respiratory failure. There is a Esposito act was initiated on 08/02/16 at 1:[address] Lackey stating suicidal tendencies states second intentional suicide attempt since September 2059. Ear toxicology that facility positive for benzodiazepines. Of interest patient was admitted to [facility] medical service 10/18/15 through for overdose of baclofen. . Patient seen in consultation at that time by Dr. Canales cool allow patient to be discharged once medically stable with supportive patient's at that time. Patient was subsequently seen for a fall in our ED on 07/16/16 if that time blood alcohol level of 339. Patient giving vague history of being at [facility] detox prior to the overdose. He also gave long history of alcohol misuse with daily drinking, so low drinking, a.m. drinking, passing out spells, a states she has been in detox and in rehabilitation in the past also. He acknowledges misuse of opiates in the past. He denies physical or sexual abuse as a child denies mental illness in his family of origin. He does adamantly refused to acknowledge these is suicide attempts stating he uses the baclofen to get high and that he only slept in his bathtub. However he does acknowledge a history of depression that he does see a psychiatrist through [facility]. 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 In any event at this time patient does meet criteria for involuntary psychiatric hospitalization under the Esposito act I'll do first opinion requests second opinion. I feel he does have capacity to sign for his medications. We will have hospitalist consult with us of this gentleman. We'll continue him on his trazodone that he states he needs for sleep at 200 mg at bedtime. We'll continue other medications per the med reconciliation also. Level counselor attempt to reach patient's to arrange a meeting for tomorrow morning to discuss diagnosis treatment and recommendations upon discharge On my examination today: Patient seen and examined. Chart reviewed. Case discussed with nursing staff. On my examination today, the patient tends to minimize the circumstances of his presenting baclofen overdose. He now denies that this overdose was suicidal in nature. In the same breath however he says that his is going to leave him because of his alcohol and substance abuse issues and "I don't want to live without my ." He does endorse feeling somewhat depressed. He is motivated to get drug and alcohol treatment and is hopeful to get into a long -term rehabilitation program. He endorses a recent relapse to alcohol use and says "I don't know what drives me to drink." No hypomanic or manic symptoms. No audiovisual hallucinations. No delusional material. The remainder of the psychiatric ROS is negative. Past psychiatric history: Patient denies a history of psychiatric diagnosis. He works with a psychotherapist weekly named Torrie. He denies any psychiatric admissions. He did make a baclofen ingestion last year. He denies any history of suicide attempts. Family history: Patient denies any family history of mental illness. Chemical dependency history: Patient reports that he had been sober for the last 6 months or so before relapsing and drinking 2 pints of liquor. He also has been abusing his baclofen by his report. Social history: Patient reports that he is but owing to his substance use. He and his each have 1 child from a previous relationship. He has an associates degree. He does not presently work. He denies any or legal history. Review of Systems Except as stated in HPI: all other systems reviewed are Neg Past Family Social History Coded Allergies: No Known Allergies (Verified , 07/16/16) Past Medical History See electronic medical record Active Scripts Nicotine (Habitrol 21 mg/24 Hr Patch)1 Patch Patch1 Patch TD DAILY #30 PATCH Prov:Estephania Lemos MD 10/23/15 Venlafaxine Hcl (Effexor-Xr)75 Mg [id number] Mg PO DAILY #30 CAP.SR Prov:Estephania Lemos MD 10/23/15 Hydrocodone-Acetaminophen (Lortab 5/500)5 Mg/500 Mg Tab1 Tab PO Q6HPRN #20 FOR PAIN Prov:Kong Mathis MD 07/19/09 Reported Medications Ziprasidone (Geodon)60 Mg Cap60 Mg PO HS 08/07/16 Valsartan (Diovan)320 Mg [id number] Mg PO DAILY 08/07/16 Topiramate (Topamax)50 Mg Tab50 Mg PO BID 08/07/16 Metoprolol Succinate ER 24 HR 25 Mg Tab25 Mg PO DAILY 08/07/16 Testosterone Patch (Androderm Patch)4 Mg/24 Hr Patch1 Patch T-DERMAL HS 08/07/16 Levothyroxine (Synthroid)100 Mcg [id number] Mcg PO DAILY 08/07/16 Sucralfate 1 Gm Tab1 Gm PO TIDACHS on empty stomach 08/07/16 Metformin 500 Mg [id number] Mg PO BIDPC With meals 08/07/16 Divalproex ER (Depakote ER)250 Mg [id number] Mg PO DAILY 08/07/16 Clopidogrel (Plavix)75 Mg Tab75 Mg PO DAILY 08/07/16 Atomoxetine (Strattera)60 Mg Cap75 Mg PO BID 08/07/16 Potassium Chloride Microencaps 20 Meq Tab20 Meq PO 08/07/16 Ezetimibe (Zetia)10 Mg Tab10 Mg PO DAILY 08/07/16 Omeprazole 40 Mg Cap40 Mg PO DAILY #30 CAP Ref 0 08/07/16 Current Medications Medications (Trade) Dose Ordered Sig/Jackie Route Start Time Stop Time Status Last Admin (D50w (Vial) Inj) 25 ml UNSCH PRN IV PUSH 08/06/16 18:45 (Glucagon Inj) 1 mg UNSCH PRN OTHER 08/06/16 18:45 (Habitrol 21 Mg Patch.24 Hr) 1 patch DAILY T-DERMAL 08/07/16 09:00 08/08/16 08:40 (Cogentin) 1 mg Q12H PRN PO 08/06/16 18:45 (Cogentin Inj) 1 mg Q12H PRN IM 08/06/16 18:45 Miscellaneous Information 1 DAILY T-DERMAL 08/07/16 09:00 08/08/16 08:40 (Toprol Xl) 25 mg DAILY PO 08/07/16 09:00 08/08/16 08:40 (Glucophage) 500 mg BIDPC PO 08/07/16 09:00 08/08/16 08:40 (Plavix) 75 mg DAILY PO 08/07/16 09:00 08/08/16 08:40 (Flagyl) 500 mg Q8HR PO 08/06/16 22:00 08/13/16 21:59 08/08/16 06:01 (Desyrel) 200 mg HS PO 08/07/16 21:00 08/07/16 21:09 (Tylenol) 650 mg Q4H PRN PO 08/07/16 12:45 (Milk Of Magnesia Liq) 30 ml DAILY PRN PO 08/07/16 12:45 (Mag-Al Plus Susp Liq) 30 ml Q6H PRN PO 08/07/16 12:45 (Atarax) 50 mg Q6H PRN PO 08/07/16 12:45 08/07/16 17:15 (Carafate) 1 gm DAILY@1100 PO 08/08/16 11:00 (Protonix) 40 mg DAILY PO 08/08/16 09:00 08/08/16 08:40 (Zetia) 10 mg DAILY PO 08/08/16 09:00 08/08/16 08:40 (Diovan) 320 mg DAILY PO 08/07/16 14:30 08/08/16 08:40 (Synthroid) 125 mcg DAILY@0600 PO 08/09/16 06:00 Family History See above Social History See above Patient's Strengths (min. 2) In a monitored setting. Verbally fluent. Physical Exam Physical examination completed by the hospitalist fundraising consultant. On my examination today, the patient appears to be in no acute physical distress. No abnormal motor movements noted. Labs and vital signs reviewed: Vital Signs Vital Signs Date Time Temp Pulse Resp B/P Pulse Ox O2 Delivery O2 Flow Rate FiO2 08/08/16 06:50 97.6 70 18 105/54 97 I/O 08/07/16 08/07/16 08/08/16 08:00 16:00 00:00 Intake Total 240 ml 240 ml 480 ml Balance 240 ml 240 ml 480 ml Lab Results Item Value Date Time White Blood Count 6.1 TH/MM3 08/07/16909 Hemoglobin 16.4 GM/DL 08/07/16909 Platelet Count 159 TH/MM3 08/07/16909 Sodium Level 141 MEQ/L 08/07/16909 Potassium Level 3.1 MEQ/L L 08/07/16909 Chloride Level 105 MEQ/L 08/07/16909 Carbon Dioxide Level 27.6 MEQ/L 08/07/16909 Blood Urea Nitrogen 17 MG/DL 08/07/16909 Creatinine 0.98 MG/DL 08/07/16909 Random Glucose 101 MG/DL 08/07/16909 Aspartate Amino Transf (AST/SGOT) 53 U/L H 08/07/16909 Alanine Aminotransferase (ALT/SGPT) 58 U/L 08/07/16909 Alkaline Phosphatase 77 U/L 08/07/16909 Free Thyroxine 1.61 NG/DL H 08/07/16909 Free Triiodothyronine (T3) pg/dL 2.50 PG/ML 08/07/16909 Thyroid Stimulating Hormone 3rd Gen 4.420 uIU/ML H 08/07/16909 Mental Status Examination Patient is casually dressed. He is somewhat disheveled but maintaining basic hygiene. He is awake and alert and oriented to person and hospital at least. No motor abnormalities noted. Speech is somewhat raspy but otherwise within normal limits for rate. Language and fund of knowledge seemed average. Mood somewhat depressed. Affect blunted. Thought process linear. No loosening of associations. No evident delusions. No audiovisual hallucinations. Denies suicidal or homicidal ideation but it is unclear that he is reliably contract for safety at the present time. Insight and judgment I fear are poor. Judgment: Poor Affect: Other (decreased range and intensity) Mood: Sad Motor Activity: Normal gait Assessment & Plan Problem List: (1) Major depressive disorder, recurrent severe without psychotic features ICD Code: F33.2 (2) Polysubstance abuse ICD Code: F19.10 Assessment & Plan Given the circumstances of patient's presentation here in his presentation on my examination today, I concur with Dr. Higginbotham that the patient meets criteria for involuntary psychiatric hospitalization under the Esposito act. I have completed the second opinion paperwork. Further care as per Dr. Higginbotham. Thank you very much for this consultation. Signing off. Request HC Surrog/Guard Advoc?: No Hoang Canales MD August 08, 2016 10:52
[2016-08-08] MEDS: SUCRALFATE 1 GM TAB PO SCH (11:00)
--- NOTE | 2016-08-08 12:48 | HHI.PYPN ---
Subjective Remarks Patient seen in his room with nurse Krystle, chart reviewed. Patient continues to show no insight into the severity of his behaviors his addictions and the consequences of his behaviors. He continues to be somewhat confusing with his history, now stating he wants to go back into a 28 day rehabilitation program. After visiting with patient I visited with patient's who is from him recently due to his alcohol use, and counselor Sushila. acknowledges multiple year history of alcohol abuse with occasional fairly long episodes of sobriety. While patient denies suicidality his feels that these were suicide attempts. Patient continues to denies suicidality to us, though I question the veracity of this statement Review of Systems Except as stated in HPI: all other systems reviewed are Neg Objective Alert: Yes [place]: Person, Place Mood: Calm, Depressed (slightly) Affect: Other (decreased range and intensity) Memory Intact: Comment (poor) Hallucinations: Other (denies) Delusions: No Delusion Type: Other (somewhat vigilant) Suicidal: Ideation (denies) Homicidal: Ideation (denies) Insight/Judgment Poor Vitals/IOs Vital Signs Date Time Temp Pulse Resp B/P Pulse Ox O2 Delivery O2 Flow Rate FiO2 08/08/16 06:50 97.6 70 18 105/54 97 Intake and Output 08/07/16 08/07/16 08/08/16 08:00 16:00 00:00 Intake Total 240 ml 240 ml 480 ml Balance 240 ml 240 ml 480 ml Assessment & Plan Problem List: (1) Major depressive disorder, recurrent severe without psychotic features ICD Code: F33.2 (2) Polysubstance abuse ICD Code: F19.10 Assessment & Plan Estimated LOS: days patient remains somewhat depressed, though denying suicidality I do question the veracity of that state. Compliant medications. For now continue treatment Justification for Cont. Inpt. At this time I feel patient would decompensate if placed in a lower level of care Discharge Planning To be determined Request HC Surrog/Guard Advoc?: No Fredi Higginbotham MD August 08, 2016 12:48
[2016-08-08 18:20] VITALS: BP 91/57; PULSE 62; RESP 17; TEMP 97.8
[2016-08-08] MEDS: traZODone HCL 100 MG TAB PO SCH (20:58)
[2016-08-09] MEDS: metroNIDAZOLE 500 MG TAB PO SCH ×3 (05:19→22:00)
[2016-08-09] MEDS ORDERED: LEVOTHYROXINE SODIUM 100 MCG TAB PO SCH (06:00)
[2016-08-09] MEDS: INSULIN ASPART SUPPLEMENTAL SCALE SQ SCH ×2 (06:30→11:00)
[2016-08-09 06:49] VITALS: BP 89/47; PULSE 58; RESP 16; TEMP 98; O2SAT 96
[2016-08-09] MEDS: RESP: ALBUTEROL 2.5 MG/IPRATROPIUM 0.5 MG NEB (SCH) NEB ×2 (07:30→19:50)
[2016-08-09] MEDS: VALSARTAN 160 MG TAB PO SCH (09:00)
[2016-08-09] MEDS: METOPROLOL SUCCINATE 25 MG EXTENDED RELEASE TAB PO SCH (09:00)
[2016-08-09] MEDS: REMOVE OLD PATCH T-DERMAL SCH (09:00)
--- NOTE | 2016-08-09 10:15 | HHI.PYPN ---
Subjective Remarks Patient seen and examined with nurse in weekend coverage. Chart reviewed. Case discussed with nursing staff who reports patient has no behavioral problem. Patient fairly hypotensive this morning, 85/49 on the recheck. No confusion. Denies chest pain or shortness of breath. Denies any suicidal or homicidal ideation. No physical complaints. Review of Systems Except as stated in HPI: all other systems reviewed are Neg Objective Alert: Yes Mobile: Person, Place, Date, Situation Mood: Calm Affect: Blunted Memory Intact: Comment (not assessed. No evidence of acute confusion though.) Hallucinations: Other (no AVH) Delusions: No Delusion Type: Other (no delusional material) Suicidal: Ideation (denies suicidal ideation) Homicidal: Ideation (denies homicidal ideation) Insight/Judgment Poor Remarks Thought process linear. No motor abnormalities noted. Labs Labs reviewed. Vitals/IOs Vital Signs Date Time Temp Pulse Resp B/P Pulse Ox O2 Delivery O2 Flow Rate FiO2 08/09/16 06:49 98.0 58 16 89/47 96 Intake and Output 08/08/16 08/08/16 08/09/16 08:00 16:00 00:00 Intake Total 720 ml 720 ml 480 ml Balance 720 ml 720 ml 480 ml Assessment & Plan Problem List: (1) Major depressive disorder, recurrent severe without psychotic features ICD Code: F33.2 (2) Polysubstance abuse ICD Code: F19.10 (3) Hypotension ICD Code: I95.9 Assessment & Plan No evidence of symptomatic hypotension. Hold antihypertensives. Vitals every 4 hours. Check an EKG. I have asked the hospitalist to return to evaluate hypotension. Fall precautions. Continue to monitor on the inpatient unit. Continue other medications and care as ordered. Justification for Cont. Inpt. Complicating condition, namely hypotension today. High risk for decompensation in a less restrictive environment. Discharge Planning Per Dr. Higginbotham Request HC Surrog/Guard Advoc?: No Problem Qualifiers (1) Hypotension: Qualified Code: I95.9 - Hypotension, unspecified hypotension type Hoang Canales MD August 09, 2016 10:15
[2016-08-09 10:30] LABS: BICARBONATE 26.9 MEQ/L (21.0-32.0); POTASSIUM 3.7 MEQ/L (3.5-5.1)
[2016-08-09] MEDS: CLOPIDOGREL 75 MG TAB PO SCH (10:34)
[2016-08-09] MEDS: EZETIMIBE 10 MG TAB PO SCH (10:34)
[2016-08-09] MEDS: metFORMIN HCL 500 MG TAB PO SCH ×2 (10:35→18:45)
[2016-08-09] MEDS: NICOTINE 21 MG/24 HR PATCH T-DERMAL SCH (10:35)
[2016-08-09] MEDS: SUCRALFATE 1 GM TAB PO SCH (10:35)
[2016-08-09] MEDS: PANTOPRAZOLE SOD 40 MG DELAYED RELEASE TAB PO SCH (10:35)
[2016-08-09 13:09] VITALS: BP 100/59; PULSE 60
--- NOTE | 2016-08-09 13:45 | EKG ---
Date Performed: 08/09/2016 Time Performed: 10:33:18 PTAGE: 66 years EKG: SINUS BRADYCARDIA MODERATE INTRAVENTRICULAR CONDUCTION DELAY NONSPECIFIC ST & T-WAVE ABNORM ALITY PROLONGED QT INTERVAL Since previous tracing, no significant change noted ABNORMAL ECG PREVIOUS TRACING : 10/19/2015 10.28 DOCTOR: Idalia Romero Interpretating Date/Time 08/09/2016 13:44:41
--- NOTE | 2016-08-09 15:42 | HHI.PR ---
Subjective Remarks Follow-up visit hypothyroidism, diabetes, depression, HTN. Episode of hypotension today. BP medications were held. Patient seen and examined today. Reports generalized weakness, fatigue. Otherwise, denies pain and discomfort. Denies SOB/ dyspnea. Denies chest pain, palpitations, headaches, dizziness. Denies fevers, chills, n/v/d. Denies hematuria, dysuria. Objective Vitals Vital Signs Date Time Temp Pulse Resp B/P Pulse Ox O2 Delivery O2 Flow Rate FiO2 08/09/16 13:09 60 100/59 08/09/16 06:49 98.0 58 16 89/47 96 08/08/16 18:20 97.8 62 17 91/57 I/O 08/08/16 08/08/16 08/08/16 08/09/16 08/09/16 08/09/16 06:59 14:59 22:59 06:59 14:59 22:59 Intake Total 240 ml 1200 ml 480 ml 240 ml Balance 240 ml 1200 ml 480 ml 240 ml Intake Oral 240 ml 1200 ml 240 ml Oral Supplement 480 ml # Breastfeedings 0 # Voids 1 2 1 Result Diagram: 08/07/16 0910 08/09/16 0840 Objective Remarks GENERAL: This is a thin-appearing, older than stated age, well-developed patient , in no apparent distress. SKIN: No rashes, ecchymoses or lesions. Cool and dry. HEAD: Normocephalic. No temporal or scalp tenderness. EYES: Pupils equal round and reactive. No scleral icterus. No injection or drainage. ENT: Nose without bleeding. Throat without erythema. Airway patent. NECK: Trachea midline. No JVD or lymphadenopathy. Supple, nontender, no meningeal signs. CARDIOVASCULAR: Regular rate and rhythm without murmurs, gallops, or rubs. RESPIRATORY: Diminished breath sounds. No wheezes, rales, or rhonchi. GASTROINTESTINAL: Abdomen soft, non-tender, nondistended. Bowel sounds active 4. MUSCULOSKELETAL: Extremities without clubbing, cyanosis, or edema. NEUROLOGICAL: Awake and alert. Oriented to self, place. Motor and sensory grossly within normal limits. Very hoarse voice. A/P Problem List: (1) Major depressive disorder, recurrent severe without psychotic features ICD Code: F33.2 Status: Acute (2) Alcohol dependence ICD Code: F10.20 Status: Acute (3) Bilateral carotid artery stenosis ICD Code: I65.23 Status: Acute (4) Diabetes type 2, controlled ICD Code: E11.9 Status: Chronic (5) Hypertension ICD Code: I10 Status: Chronic (6) Hypothyroidism ICD Code: E03.9 Status: Chronic Assessment and Plan Patient 65 year old male with past medical history of throat cancer status post resection and radiation in 1999, hypothyroidism, diabetes mellitus, depression who came in as a transfer from [facility] after being admitted under [facility] act on 07/28/16. As per review of records, patient was found by his estranged in his bathtub unconscious, was intubated at the scene by paramedics, was extubated about 2-3 days later with diagnosis of sepsis and acute respiratory failure. Initiation of Esposito act 08/02/16 secondary to suicidal indication/tendencies, states second intentional suicide attempt since September 2015. Urine toxicology from previous hospital showed positive for benzodiazepines. Patient was admitted to [facility] 10/18/15 secondary to baclofen overdose, 27 missing pills as per according to review of the records. Patient was also seen in the hospital ED with alcohol blood level 339. He is now admitted to inpatient psychiatry unit for further evaluation. Consulted for medical management. Suicidal intention, depression - managed by psychiatry team Sepsis history, aspiration pneumonia, patient was recently intubated - WBC 6.1 - DuoNeb's when necessary - Continue Flagyl - Monitor respiratory status Diabetes mellitus - Continue home medication metformin 500 mg twice a day - Monitor blood glucose. Patient's blood glucose has been within normal, not receiving any insulin from sliding scale. - Decrease Accu-Cheks 2 daily - Hemoglobin A1c 6.4 Hypothyroidism - Continue with [id number] daily - TSH 4.420, T4 1.61. Free T3 2 0.5 HTN Episode of hypotension - Previously on metoprolol daily 25 mg, valsartan 320 mg daily hold for now secondary to lower BP - Continue Plavix - Monitor BP. BP in the morning 89/47, repeat BP at the bedside by CERTIFIED OPHTHALMIC ASSISTANT 109/ 55, heart rate 58 Tobacco abuse - Nicotine patch Alcohol abuse - Patient has been on detox - Monitor for any signs and symptoms of withdrawals. Generalized weakness - PT to eval and treat - Continue to encourage walker use and ambulation. DVT prop ambulatory Discussed with patient, nursing Written by Cm Conrad, acting as scribe for Dr. Dupree on 08/09/16 at 15:40. Attending Statement This note was transcribed by scribe Cm Conrad. I, Dr. Bay Dupree personally performed the history, physical exam, and medical decision making; and confirmed the accuracy of the information in the transcribed note. Authenticated by Dr. Bay Dupree on 08/09/16 at 16:53. Cm Monterroso August 09, 2016 15:42 Bay Dupree DO August 09, 2016 16:53
[2016-08-09 18:39] VITALS: BP 92/53; PULSE 63
[2016-08-09] MEDS: hydrOXYzine HCL 50 MG TAB PO PRN (18:49)
[2016-08-09 19:23] VITALS: BP 92/53; PULSE 63; TEMP 98; O2SAT 99
[2016-08-09] MEDS: traZODone HCL 100 MG TAB PO SCH (21:00)
[2016-08-10 05:48] VITALS: BP 85/50; PULSE 63; RESP 16; TEMP 99.1; O2SAT 99
[2016-08-10] MEDS: LEVOTHYROXINE SODIUM 100 MCG TAB PO SCH (06:12)
[2016-08-10] MEDS: metroNIDAZOLE 500 MG TAB PO SCH ×3 (06:12→20:38)
[2016-08-10] MEDS: REMOVE OLD PATCH T-DERMAL SCH (09:00)
[2016-08-10] MEDS: CLOPIDOGREL 75 MG TAB PO SCH (09:05)
[2016-08-10] MEDS: PANTOPRAZOLE SOD 40 MG DELAYED RELEASE TAB PO SCH (09:05)
[2016-08-10] MEDS: metFORMIN HCL 500 MG TAB PO SCH ×2 (09:05→17:49)
[2016-08-10] MEDS: EZETIMIBE 10 MG TAB PO SCH (09:05)
[2016-08-10] MEDS: NICOTINE 21 MG/24 HR PATCH T-DERMAL SCH (09:06)
[2016-08-10] MEDS: RESP: ALBUTEROL 2.5 MG/IPRATROPIUM 0.5 MG NEB (SCH) NEB ×2 (10:05→19:10)
[2016-08-10 10:12] LABS: AUTOMATED NEUTROPHIL # 4.6 TH/MM3 (1.8-7.7); BASOPHIL % 0.4 % (0.0-2.0); EOSINOPHIL % 0.7 % (0.0-4.0); HEMATOCRIT 42.5 % (39.0-51.0); HEMO FLAGS DIFF FINAL; LYMPH % 15.2 % (9.0-44.0); LYMPHOCYTE # 0.9 TH/MM3 (1.0-4.8); MEAN CELL VOLUME 89.6 FL (80.0-100.0); MEAN CORPUSCULAR HEMOGLOBIN 30.6 PG (27.0-34.0); MEAN CORPUSCULAR HGB CONC 34.1 % (32.0-36.0); MONO % 6.8 % (0.0-8.0); NEUT % 76.9 % (16.0-70.0); PLATELET COUNT 144 TH/MM3 (150-450); RED BLOOD COUNT 4.74 MIL/MM3 (4.50-5.90); RED CELL DISTRIBUTION WIDTH 14.5 % (11.6-17.2); WHITE BLOOD COUNT 5.9 TH/MM3 (4.0-11.0)
[2016-08-10 10:39] LABS: BICARBONATE 27.5 MEQ/L (21.0-32.0); POTASSIUM 4.1 MEQ/L (3.5-5.1)
[2016-08-10 10:42] LABS: INDIRECT BILIRUBIN 0.5 MG/DL (0.0-0.8); TOTAL BILIRUBIN ADULT 0.7 MG/DL (0.2-1.0)
[2016-08-10] MEDS: SUCRALFATE 1 GM TAB PO SCH (11:50)
[2016-08-10 12:19] VITALS: BP 88/50; PULSE 77
[2016-08-10 12:37] VITALS: BP 90/51
[2016-08-10] MEDS: hydrOXYzine HCL 50 MG TAB PO PRN ×2 (12:56→19:03)
--- NOTE | 2016-08-10 13:04 | HHI.PYPN ---
Subjective Remarks Patient seen for psychiatric evaluation, calm and cooperative, partially oriented, reports good mood, denies suicidal or homicidal ideation, denies visual and auditory hallucinations. Complaint with medications. Review of Systems Other No somatic complaints Objective Alert: Yes [place]: Person, Place, Date, Situation Mood: Calm Affect: Appropriate Memory Intact: Comment (not assessed. No evidence of acute confusion though.) Hallucinations: Other (no AVH) Delusions: No Delusion Type: Other (no delusional material) Suicidal: Ideation (denies suicidal ideation) Homicidal: Ideation (denies homicidal ideation) Insight/Judgment Fair Labs Test 08/10/16 09:44 White Blood Count 5.9 TH/MM3 Red Blood Count 4.74 MIL/MM3 Hemoglobin 14.5 GM/DL Hematocrit 42.5 % Mean Corpuscular Volume 89.6 FL Mean Corpuscular Hemoglobin 30.6 PG Mean Corpuscular Hemoglobin 34.1 % Concent Red Cell Distribution Width 14.5 % Platelet Count 144 TH/MM3 Mean Platelet Volume 9.5 FL Neutrophils (%) (Auto) 76.9 % Lymphocytes (%) (Auto) 15.2 % Monocytes (%) (Auto) 6.8 % Eosinophils (%) (Auto) 0.7 % Basophils (%) (Auto) 0.4 % Neutrophils # (Auto) 4.6 TH/MM3 Lymphocytes # (Auto) 0.9 TH/MM3 Monocytes # (Auto) 0.4 TH/MM3 Eosinophils # (Auto) 0.0 TH/MM3 Basophils # (Auto) 0.0 TH/MM3 CBC Comment DIFF FINAL Differential Comment Sodium Level 144 MEQ/L Potassium Level 4.1 MEQ/L Chloride Level 109 MEQ/L Carbon Dioxide Level 27.5 MEQ/L Anion Gap 8 MEQ/L Blood Urea Nitrogen 17 MG/DL Creatinine 1.07 MG/DL Estimat Glomerular Filtration 69 ML/MIN Rate Random Glucose 103 MG/DL Calcium Level 8.8 MG/DL Total Bilirubin 0.7 MG/DL Direct Bilirubin 0.2 MG/DL Indirect Bilirubin 0.5 MG/DL Aspartate Amino Transf 41 U/L (AST/SGOT) Alanine Aminotransferase 55 U/L (ALT/SGPT) Alkaline Phosphatase 72 U/L Total Protein 5.6 GM/DL Albumin 3.0 GM/DL Vitals/IOs Vital Signs Date Time Temp Pulse Resp B/P Pulse Ox O2 Delivery O2 Flow Rate FiO2 08/10/16 12:37 90/51 08/10/16 12:19 77 08/10/16 05:48 99.1 16 99 Intake and Output 08/09/16 08/09/16 08/10/16 08:00 16:00 00:00 Intake Total 240 ml 1800 ml Balance 240 ml 1800 ml Assessment & Plan Problem List: (1) Major depressive disorder, recurrent severe without psychotic features ICD Code: F33.2 (2) Polysubstance abuse ICD Code: F19.10 (3) Hypotension ICD Code: I95.9 Assessment & Plan Estimated LOS: days Justification for Cont. Inpt. Patient will continue psychiatric hospitalization for stabilization Request HC Surrog/Guard Advoc?: No Problem Qualifiers (1) Hypotension: Qualified Code: I95.9 - Hypotension, unspecified hypotension type Tulio Clay MD August 10, 2016 13:04
--- NOTE | 2016-08-10 13:26 | HHI.PR ---
Subjective Remarks Follow-up visit hypothyroidism, diabetes, depression, HTN. Episode of hypotension today, 85/50, 88/50, 90/51. Patient seen and examined today. Lying in bed with CPAP machine on. Reports he is doing okay. States he continues to be tired but denies headaches, dizziness, palpitations. States he has been eating and drinking well, thinks it's not enough. Requesting to get supplement drinks and water pitcher. Denies SOB/dyspnea. Denies pain and discomfort. Denies fevers, chills, n/v/d. Denies hematuria, dysuria. Objective Vitals Vital Signs Date Time Temp Pulse Resp B/P Pulse Ox O2 Delivery O2 Flow Rate FiO2 08/10/16 12:37 90/51 08/10/16 12:19 77 88/50 08/10/16 05:48 99.1 63 16 85/50 99 08/09/16 19:23 98.0 63 92/53 99 08/09/16 18:39 63 92/53 I/O 08/09/16 08/09/16 08/09/16 08/10/16 08/10/16 08/10/16 07:00 15:00 23:00 07:00 15:00 23:00 Intake Total 240 ml 1800 ml 120 ml Balance 240 ml 1800 ml 120 ml Intake Oral 240 ml 1800 ml 120 ml # Voids 1 3 2 Result Diagram: 08/10/16 0944 08/10/16 0944 Objective Remarks GENERAL: This is a thin-appearing, older than stated age, well-developed patient , in no apparent distress. SKIN: No rashes, ecchymoses or lesions. Cool and dry. HEAD: Normocephalic. No temporal or scalp tenderness. EYES: Pupils equal round and reactive. No scleral icterus. No injection or drainage. ENT: Nose without bleeding. Throat without erythema. Airway patent. NECK: Trachea midline. No JVD or lymphadenopathy. Supple, nontender, no meningeal signs. CARDIOVASCULAR: Regular rate and rhythm without murmurs, gallops, or rubs. RESPIRATORY: Diminished breath sounds. No wheezes, rales, or rhonchi. GASTROINTESTINAL: Abdomen soft, non-tender, nondistended. Bowel sounds active 4. MUSCULOSKELETAL: Extremities without clubbing, cyanosis, or edema. NEUROLOGICAL: Awake and alert. Oriented to self, place. Motor and sensory grossly within normal limits. Very hoarse voice. A/P Problem List: (1) Major depressive disorder, recurrent severe without psychotic features ICD Code: F33.2 Status: Acute (2) Alcohol dependence ICD Code: F10.20 Status: Acute (3) Bilateral carotid artery stenosis ICD Code: I65.23 Status: Acute (4) Diabetes type 2, controlled ICD Code: E11.9 Status: Chronic (5) Hypertension ICD Code: I10 Status: Chronic (6) Hypothyroidism ICD Code: E03.9 Status: Chronic Assessment and Plan Patient 65 year old male with past medical history of throat cancer status post resection and radiation in 1999, hypothyroidism, diabetes mellitus, depression who came in as a transfer from [facility] after being admitted under Es[facility]ito act on 07/28/16. As per review of records, patient was found by his estranged in his bathtub unconscious, was intubated at the scene by paramedics, was extubated about 2-3 days later with diagnosis of sepsis and acute respiratory failure. Initiation of Esposito act 08/02/16 secondary to suicidal indication/tendencies, states second intentional suicide attempt since September 2015. Urine toxicology from previous hospital showed positive for benzodiazepines. Patient was admitted to [facility] 10/18/15 secondary to baclofen overdose, 27 missing pills as per according to review of the records. Patient was also seen in the hospital ED with alcohol blood level 339. He is now admitted to inpatient psychiatry unit for further evaluation. Consulted for medical management. Suicidal intention, depression - managed by psychiatry team Sepsis history, aspiration pneumonia, patient was recently intubated - WBC 6.1, 5.9 - DuoNeb's when necessary - Continue Flagyl - Monitor respiratory status Diabetes mellitus - Continue home medication metformin 500 mg twice a day - Monitor blood glucose. Patient's blood glucose has been within normal, not receiving any insulin from sliding scale. - Decrease Accu-Cheks 2 daily - Hemoglobin A1c 6.4 Hypothyroidism - Continue with [id number] daily - TSH 4.420, T4 1 0.61. Free T3 2 0.5 HTN Episode of hypotension - Previously on metoprolol daily 25 mg, valsartan 320 mg daily hold for now secondary to lower BP - Continue Plavix - Use manual cuff with BP. Repeat BP 90/51. Pt. asymptomatic. Encourage PO fluid hydration. H/H possibly hemoconcentrated. Glucerna shakes. - If continues to be low, may need IVF, we will transfer to [facility] - Monitor BP. Tobacco abuse - Nicotine patch Alcohol abuse - Patient has been on detox - Monitor for any signs and symptoms of withdrawals. Generalized weakness - PT to eval and treat - Continue to encourage walker use and ambulation. - Check vitamin B12, vitamin D levels DVT prop ambulatory Discussed with patient, nursing Written by Cm Conrad, acting as scribe for Dr. Dupree on 08/10/16 at 13:22. Attending Statement This note was transcribed by scribe Cm Conrad. I, Dr. Bay Dupree personally performed the history, physical exam, and medical decision making; and confirmed the accuracy of the information in the transcribed note. Authenticated by Dr. Bay Dupree on 08/10/16 at 14:13. Cm Monterroso August 10, 2016 13:26 Bay Dupree DO August 10, 2016 14:13
[2016-08-10 15:25] LABS: BLOOD GAS BASE EXCESS -3.5 mmol/L (-2-2); BLOOD GAS CARBOXYHEMOGLOBIN 1.4 % (0-4); BLOOD GAS HCO3 19 mmol/L (22-26); BLOOD GAS METHEMOGLOBIN 1.2 % (0-2); BLOOD GAS O2 HGB SATURATION 96 % (90-100); BLOOD GAS PCO2 21 mmHg (38-42); BLOOD GAS PO2 110 mmHg (61-120); BLOOD GAS TOTAL HGB 14.8 G/DL (12.0-16.0); TEMP CORR TO 98.6
[2016-08-10 15:26] LABS: CRITICAL VALUE YES; DRAW SITE RT RADIAL; FIO2 21 %; OXYGEN DEVICE ROOM AIR
[2016-08-10 15:27] LABS: NUMBER OF ARTERIAL PUNCTURES 1; STAT NO; ULNAR PULSE PRESENT
[2016-08-10 15:35] VITALS: BP 103/61; PULSE 91; RESP 15
[2016-08-10] MEDS: traZODone HCL 100 MG TAB PO SCH (20:38)
[2016-08-10 20:47] VITALS: BP 103/61; PULSE 91; RESP 18; TEMP 98.7; O2SAT 99
[2016-08-10 20:48] VITALS: RESP 16
[2016-08-11 03:58] VITALS: BP 100/55; PULSE 70; RESP 15; TEMP 98.6; O2SAT 95
[2016-08-11 05:35] VITALS: BP 100/55; PULSE 70; RESP 18; TEMP 98.6
[2016-08-11] MEDS: LEVOTHYROXINE SODIUM 100 MCG TAB PO SCH (06:00)
[2016-08-11] MEDS: metroNIDAZOLE 500 MG TAB PO SCH ×3 (06:00→20:50)
[2016-08-11] MEDS: CHOLECALCIFEROL (VIT D3) 1000 UNIT TAB PO SCH (09:00)
[2016-08-11] MEDS: REMOVE OLD PATCH T-DERMAL SCH (09:00)
[2016-08-11] MEDS: PANTOPRAZOLE SOD 40 MG DELAYED RELEASE TAB PO SCH (09:00)
[2016-08-11] MEDS: EZETIMIBE 10 MG TAB PO SCH (09:09)
[2016-08-11] MEDS: CLOPIDOGREL 75 MG TAB PO SCH (09:10)
[2016-08-11] MEDS: NICOTINE 21 MG/24 HR PATCH T-DERMAL SCH (09:10)
[2016-08-11] MEDS: metFORMIN HCL 500 MG TAB PO SCH ×2 (09:11→17:54)
[2016-08-11] MEDS: RESP: ALBUTEROL 2.5 MG/IPRATROPIUM 0.5 MG NEB (SCH) NEB (09:48)
[2016-08-11] MEDS: SUCRALFATE 1 GM TAB PO SCH (11:00)
--- NOTE | 2016-08-11 13:30 | HHI.PR ---
Subjective Remarks Follow-up visit hypothyroidism, diabetes, depression, HTN with hypotension. Patient seen and examined today. Lying in bed with CPAP machine on. Reports he is doing okay. Discussed with patient lab reports and vitamin D levels to be started supplementation. Patient verbalized understanding. Denies pain and discomfort. Denies SOB/ dyspnea. Denies chest pain, palpitations, headaches, dizziness. Denies fevers, chills, n/v/d. Denies hematuria, dysuria. Objective Vitals Vital Signs Date Time Temp Pulse Resp B/P Pulse Ox O2 Delivery O2 Flow Rate FiO2 08/11/16 05:35 98.6 70 18 100/55 08/11/16 03:58 98.6 70 15 100/55 95 08/10/16 20:48 16 08/10/16 20:47 98.7 91 18 103/61 99 08/10/16 15:35 91 15 103/61 I/O 08/10/16 08/10/16 08/10/16 08/11/16 08/11/16 08/11/16 07:00 15:00 23:00 07:00 15:00 23:00 Intake Total 120 ml 980 ml 0 ml 240 ml Balance 120 ml 980 ml 0 ml 240 ml Intake Oral 120 ml 980 ml 0 ml 240 ml # Voids 2 1 1 Result Diagram: 08/10/1694308/10/16943 Objective Remarks GENERAL: This is a thin-appearing, older than stated age, well-developed patient , in no apparent distress. SKIN: No rashes, ecchymoses or lesions. Cool and dry. HEAD: Normocephalic. No temporal or scalp tenderness. EYES: Pupils equal round and reactive. No scleral icterus. No injection or drainage. ENT: Nose without bleeding. Throat without erythema. Airway patent. NECK: Trachea midline. No JVD or lymphadenopathy. Supple, nontender, no meningeal signs. CARDIOVASCULAR: Regular rate and rhythm without murmurs, gallops, or rubs. RESPIRATORY: Diminished breath sounds. No wheezes, rales, or rhonchi. GASTROINTESTINAL: Abdomen soft, non-tender, nondistended. Bowel sounds active 4. MUSCULOSKELETAL: Extremities without clubbing, cyanosis, or edema. NEUROLOGICAL: Awake and alert. Oriented to self, place. Motor and sensory grossly within normal limits. Very hoarse soft voice. A/P Problem List: (1) Major depressive disorder, recurrent severe without psychotic features ICD Code: F33.2 Status: Acute (2) Alcohol dependence ICD Code: F10.20 Status: Acute (3) Bilateral carotid artery stenosis ICD Code: I65.23 Status: Acute (4) Diabetes type 2, controlled ICD Code: E11.9 Status: Chronic (5) Hypertension ICD Code: I10 Status: Chronic (6) Hypothyroidism ICD Code: E03.9 Status: Chronic Assessment and Plan Patient 65 year old male with past medical history of throat cancer status post resection and radiation in 1999, hypothyroidism, diabetes mellitus, depression who came in as a transfer from [facility] after being admitted under Esposito act on 07/28/16. As per review of records, patient was found by his estranged in his bathtub unconscious, was intubated at the scene by paramedics, was extubated about 2-3 days later with diagnosis of sepsis and acute respiratory failure. Initiation of Esposito act 08/02/16 secondary to suicidal indication/tendencies, states second intentional suicide attempt since September 2015. Urine toxicology from previous hospital showed positive for benzodiazepines. Patient was admitted to [facility] 10/18/15 secondary to baclofen overdose, 27 missing pills as per according to review of the records. Patient was also seen in the hospital ED with alcohol blood level 339. He is now admitted to inpatient psychiatry unit for further evaluation. Consulted for medical management. Suicidal intention, depression - managed by psychiatry team Sepsis history, aspiration pneumonia, patient was recently intubated - WBC 6.1, 5.9 - DuoNeb's when necessary - Continue Flagyl to complete 08/13/16 - Continue with home CPAP use - Monitor respiratory status Diabetes mellitus - Continue home medication metformin 500 mg twice a day - Monitor blood glucose. Patient's blood glucose has been within normal, not receiving any insulin from sliding scale. - Decrease Accu-Cheks 2 daily - Hemoglobin A1c 6.4 Hypothyroidism - Continue with [id number] daily - TSH 4.420, T4 1 0.61. Free T3 2 0.5 HTN Episodes of hypotension - Previously on metoprolol daily 25 mg, valsartan 320 mg daily hold for now secondary to lower BP - Continue Plavix - Pt. asymptomatic. Encourage PO fluid hydration. H/H possibly hemoconcentrated. Indira rodriguez. - If continues to be low, may need IVF, we will transfer to [facility] - Monitor BP. - Discussed with patient that if he gets transferred to another facility or home that BP medications will be held for now and should not continue until seen by another primary provider in the outside facility for follow-up. Tobacco abuse - Nicotine patch Alcohol abuse - Patient has been on detox - Monitor for any signs and symptoms of withdrawals. Generalized weakness - PT to eval and treat - Continue to encourage walker use and ambulation. - vitamin B12 533, vitamin D levels 29.7 - Start vitamin D supplementation 1000 daily. Discussed with patient. - Folate 11.4 DVT prop ambulatory Discussed with patient, nursing, Cm Ramos August 11, 2016 13:30
[2016-08-11] MEDS: hydrOXYzine HCL 50 MG TAB PO PRN ×2 (15:07→20:50)
--- NOTE | 2016-08-11 16:53 | HHI.PYPN ---
Subjective Remarks Patient seen in room with nurse Carl, chart review, patient compliant medications did state today that he was told his is going to divorce him. Now states his her family can get him into the [facility]. And that he would like to have his friend drive him there. I respectfully declined to allow this to happen singly do need to verify the reality of this placement and also would be concerned about patient relapsing is going there with a friend. Review of Systems Except as stated in HPI: all other systems reviewed are Neg Objective Alert: Yes [place]: Person, Place, Date, Situation Mood: Calm Affect: Appropriate Memory Intact: Comment (not assessed. No evidence of acute confusion though.) Hallucinations: Other (no AVH) Delusions: No Delusion Type: Other (no delusional material) Suicidal: Ideation (denies suicidal ideation) Homicidal: Ideation (denies homicidal ideation) Insight/Judgment Very poor Vitals/IOs Vital Signs Date Time Temp Pulse Resp B/P Pulse Ox O2 Delivery O2 Flow Rate FiO2 08/11/16 05:35 98.6 70 18 100/55 08/11/16 03:58 95 Intake and Output 08/10/16 08/10/16 08/11/16 08:00 16:00 00:00 Intake Total 120 ml 500 ml 480 ml Balance 120 ml 500 ml 480 ml Assessment & Plan Problem List: (1) Major depressive disorder, recurrent severe without psychotic features ICD Code: F33.2 (2) Polysubstance abuse ICD Code: F19.10 (3) Hypotension ICD Code: I95.9 Assessment & Plan Estimated LOS: days patient remains somewhat depressed isolating though calmer today. Justification for Cont. Inpt. At this time patient will decompensate with placed in a lower level of care Discharge Planning To be determined Request HC Surrog/Guard Advoc?: No Problem Qualifiers (1) Hypotension: Qualified Code: I95.9 - Hypotension, unspecified hypotension type Fredi Higginbotham MD August 11, 2016 16:53
[2016-08-11 19:49] VITALS: BP 98/54; PULSE 78; RESP 18; TEMP 97.9; O2SAT 97
[2016-08-11 19:50] VITALS: BP 98/54; PULSE 78; RESP 18; TEMP 97.9; O2SAT 97
[2016-08-11] MEDS: traZODone HCL 100 MG TAB PO SCH (20:50)
[2016-08-12 05:19] VITALS: BP 118/58; PULSE 61; RESP 16; TEMP 98.3; O2SAT 97
[2016-08-12] MEDS: LEVOTHYROXINE SODIUM 100 MCG TAB PO SCH (05:39)
[2016-08-12] MEDS: metroNIDAZOLE 500 MG TAB PO SCH ×3 (05:39→22:00)
[2016-08-12] MEDS: CHOLECALCIFEROL (VIT D3) 1000 UNIT TAB PO SCH (08:52)
[2016-08-12] MEDS: metFORMIN HCL 500 MG TAB PO SCH ×2 (08:52→16:54)
[2016-08-12] MEDS: PANTOPRAZOLE SOD 40 MG DELAYED RELEASE TAB PO SCH (08:52)
[2016-08-12] MEDS: NICOTINE 21 MG/24 HR PATCH T-DERMAL SCH (08:52)
[2016-08-12] MEDS: EZETIMIBE 10 MG TAB PO SCH (08:53)
[2016-08-12] MEDS: REMOVE OLD PATCH T-DERMAL SCH (08:53)
[2016-08-12] MEDS: CLOPIDOGREL 75 MG TAB PO SCH (08:53)
[2016-08-12] MEDS: SUCRALFATE 1 GM TAB PO SCH ×2 (11:00→13:07)
[2016-08-12] MEDS: hydrOXYzine HCL 50 MG TAB PO PRN (13:07)
--- NOTE | 2016-08-12 14:36 | HHI.PYPN ---
Subjective Remarks Patient seen in his room nurse Meir, patient showing some increased alertness and focus, still speaking in a whisper though speech is goal oriented. He continues to hope to find a rehabilitation program. He denies suicidality homicidality voices or visions. Is compliant with medication Review of Systems Except as stated in HPI: all other systems reviewed are Neg Objective Alert: Yes [place]: Person, Place, Date, Situation Mood: Calm Affect: Appropriate Memory Intact: Comment (not assessed. No evidence of acute confusion though.) Hallucinations: Other (no AVH) Delusions: No Delusion Type: Other (no delusional material) Suicidal: Ideation (denies suicidal ideation) Homicidal: Ideation (denies homicidal ideation) Insight/Judgment Poor Vitals/IOs Vital Signs Date Time Temp Pulse Resp B/P Pulse Ox O2 Delivery O2 Flow Rate FiO2 08/12/16 05:19 98.3 61 16 118/58 97 Intake and Output 08/11/16 08/11/16 08/12/16 08:00 16:00 00:00 Intake Total 240 ml 600 ml Balance 240 ml 600 ml Assessment & Plan Problem List: (1) Major depressive disorder, recurrent severe without psychotic features ICD Code: F33.2 (2) Polysubstance abuse ICD Code: F19.10 (3) Hypotension ICD Code: I95.9 Assessment & Plan Estimated LOS: days patient calmer mood somewhat improving, denies suicidality homicidality. For now continue treatment Justification for Cont. Inpt. At this time patient will decompensate then placed in a lower level of care Discharge Planning To be determined Request HC Surrog/Guard Advoc?: No Problem Qualifiers (1) Hypotension: Qualified Code: I95.9 - Hypotension, unspecified hypotension type Fredi Higginbotham MD August 12, 2016 14:36
--- NOTE | 2016-08-12 15:01 | HHI.PR ---
Subjective Remarks Follow-up visit hypothyroidism, diabetes, depression, HTN with hypotension. Patient seen and examined today. Reports he forgot to mention that he is taking testosterone injections every week with his PCP Dr. Ramos. States less injection was a week ago but cannot remember what the exact date. As per nursing, has called and mentioned about testosterone injections patient is getting 200 mg every weekly. Otherwise, patient denies pain and discomfort. Denies SOB/ dyspnea. Denies chest pain, palpitations, headaches, dizziness. Denies fevers, chills, n/v/d. Denies hematuria, dysuria. Objective Vitals Vital Signs Date Time Temp Pulse Resp B/P Pulse Ox O2 Delivery O2 Flow Rate FiO2 08/12/16 05:19 98.3 61 16 118/58 97 08/11/16 19:50 97.9 78 18 98/54 97 08/11/16 19:49 97.9 78 18 98/54 97 I/O 08/11/16 08/11/16 08/11/16 08/12/16 08/12/16 08/12/16 07:00 15:00 23:00 07:00 15:00 23:00 Intake Total 0 ml 240 ml 600 ml Balance 0 ml 240 ml 600 ml Intake Oral 0 ml 240 ml 600 ml # Voids 1 2 1 Result Diagram: 08/10/1694308/10/16943 Objective Remarks GENERAL: This is a thin-appearing, older than stated age, well-developed patient , in no apparent distress. SKIN: No rashes, ecchymoses or lesions. Cool and dry. HEAD: Normocephalic. No temporal or scalp tenderness. EYES: Pupils equal round and reactive. No scleral icterus. No injection or drainage. ENT: Nose without bleeding. Throat without erythema. Airway patent. NECK: Trachea midline. No JVD or lymphadenopathy. Supple, nontender, no meningeal signs. CARDIOVASCULAR: Regular rate and rhythm without murmurs, gallops, or rubs. RESPIRATORY: Diminished breath sounds. No wheezes, rales, or rhonchi. GASTROINTESTINAL: Abdomen soft, non-tender, nondistended. Bowel sounds active 4. MUSCULOSKELETAL: Extremities without clubbing, cyanosis, or edema. NEUROLOGICAL: Awake and alert. Oriented to self, place. Motor and sensory grossly within normal limits. Very hoarse soft voice. A/P Problem List: (1) Major depressive disorder, recurrent severe without psychotic features ICD Code: F33.2 Status: Acute (2) Alcohol dependence ICD Code: F10.20 Status: Acute (3) Bilateral carotid artery stenosis ICD Code: I65.23 Status: Acute (4) Diabetes type 2, controlled ICD Code: E11.9 Status: Chronic (5) Hypertension ICD Code: I10 Status: Chronic (6) Hypothyroidism ICD Code: E03.9 Status: Chronic Assessment and Plan Patient is a 65 year old male with past medical history of throat cancer status post resection and radiation in 1999, hypothyroidism, diabetes mellitus, depression who came in as a transfer from [facility] after being admitted under Esposito act on 07/28/16. As per review of records, patient was found by his estranged in his bathtub unconscious, was intubated at the scene by paramedics, was extubated about 2-3 days later with diagnosis of sepsis and acute respiratory failure. Initiation of Esposito act secondary to suicidal indication/tendencies, states second intentional suicide attempt since September 2015. Urine toxicology from previous hospital showed positive for benzodiazepines. Patient was admitted to [facility] secondary to baclofen overdose, 27 missing pills as per according to review of the records. Patient was also seen in the hospital ED with alcohol blood level 339. He is now admitted to inpatient psychiatry unit for further evaluation. Consulted for medical management. Suicidal intention, depression - managed by psychiatry team Sepsis history, aspiration pneumonia, patient was recently intubated - WBC 6.1, 5.9 - DuoNeb's when necessary - Continue Flagyl to complete 08/13/16 - Continue with home CPAP use - Monitor respiratory status Diabetes mellitus - Continue home medication metformin 500 mg twice a day - Monitor blood glucose. Patient's blood glucose has been within normal, not receiving any insulin from sliding scale. - Decrease Accu-Cheks 2 daily - Hemoglobin A1c 6.4 Hypothyroidism - Continue with [id number] daily - TSH 4.420, T4 1 0.61. Free T3 2 0.5 HTN Episodes of hypotension - Previously on metoprolol daily 25 mg, valsartan 320 mg daily hold for now secondary to lower BP - Continue Plavix - Pt. asymptomatic. Encourage PO fluid hydration. H/H possibly hemoconcentrated. Glucerna shakes. - If continues to be low, may need IVF, we will transfer to [facility] med psych - Monitor BP. - Discussed with patient that if he gets transferred to another facility or home that BP medications will be held for now and should not continue until seen by another primary provider in the outside facility for follow-up. Tobacco abuse - Nicotine patch Alcohol abuse - Patient has been on detox - Monitor for any signs and symptoms of withdrawals. Generalized weakness - PT to eval and treat - Continue to encourage walker use and ambulation. - vitamin B12 533, vitamin D levels 29.7 - Start vitamin D supplementation 1000 daily. Discussed with patient. - Folate 11.4 Low testosterone - Check testosterone level - this is a sent out to reference lab, ? time for return of results - Attempted to verify testosterone dose with PCP Dr. Ramos office. Left voicemail. DVT prop ambulatory Discussed with patient, nursing, Cm Ramos August 12, 2016 15:01
[2016-08-12 17:50] VITALS: BP 99/50; PULSE 72; RESP 18; TEMP 96.9; O2SAT 97
[2016-08-12] MEDS: traZODone HCL 100 MG TAB PO SCH (21:00)
[2016-08-12] MEDS ORDERED: TESTOSTERONE TOPICAL SCH (21:00)
[2016-08-13 06:26] VITALS: BP 140/72; PULSE 78; RESP 18; TEMP 97.1; O2SAT 97
[2016-08-13] MEDS ORDERED: CARA1TAB6 PO (08:24)
[2016-08-13] MEDS ORDERED: TRAZ50TA12 PO (08:24)
[2016-08-13] MEDS ORDERED: METR-1 PO (08:24)
[2016-08-13] MEDS ORDERED: PANT40TA3 PO (08:24)
[2016-08-13] MEDS ORDERED: VITA100018 PO (08:24)
[2016-08-13] MEDS ORDERED: PLAV75TA29 PO (08:24)
[2016-08-13] MEDS ORDERED: LEVO.1 PO (08:24)
[2016-08-13] MEDS ORDERED: METF500 PO (08:24)
[2016-08-13] MEDS ORDERED: ZETI10TA5 PO (08:24)
--- NOTE | 2016-08-13 08:31 | HHI.DS ---
Psychiatry Discharge Summary Inpatient Psychiatric care?: Yes Advance Directive: No Reason Not Provided: NONE Mental Health AdvanceDirective: No Health Care Proxy: No Admission Admission Date August 06, 2016 at 15:15 Admission Diagnosis: (1) Major depressive disorder, recurrent severe without psychotic features ICD Code: F33.2 (2) Alcohol dependence ICD Code: F10.[address] Higginbotham's H&P: Patient is a 66-year-old white male who comes here as a transfer from [facility] after being admitted there under Esposito act on 07/28/16. Patient was found by his estranged in his bathtub unconscious, was intubated at the scene by the paramedics, was extubated about 2-3 days later with diagnosis of sepsis and acute respiratory failure. There is a Esposito act was initiated on 08/02/16 at 1:[address] Lackey stating suicidal tendencies states second intentional suicide attempt since September 2059. Ear toxicology that facility positive for benzodiazepines. Of interest patient was admitted to [facility] medical service 10/18/15 through for overdose of baclofen. . Patient seen in consultation at that time by Dr. Canales cool allow patient to be discharged once medically stable with supportive patient's at that time. Patient was subsequently seen for a fall in our ED on 07/16/16 if that time blood alcohol level of 339. Patient giving vague history of being at [facility] detox prior to the overdose. He also gave long history of alcohol misuse with daily drinking, so low drinking, a.m. drinking, passing out spells, a states she has been in detox and in rehabilitation in the past also. He acknowledges misuse of opiates in the past. He denies physical or sexual abuse as a child denies mental illness in his family of origin. He does adamantly refused to acknowledge these is suicide attempts stating he uses the baclofen to get high and that he only slept in his bathtub. However he does acknowledge a history of depression that he does see a psychiatrist through [facility]. 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 In any event at this time patient does meet criteria for involuntary psychiatric hospitalization under the Esposito act I'll do first opinion requests second opinion. I feel he does have capacity to sign for his medications. We will have hospitalist consult with us of this gentleman. We'll continue him on his trazodone that he states he needs for sleep at 200 mg at bedtime. We'll continue other medications per the med reconciliation also. Level counselor attempt to reach patient's to arrange a meeting for tomorrow morning to discuss diagnosis treatment and recommendations upon discharge On my examination today: Patient seen and examined. Chart reviewed. Case discussed with nursing staff. On my examination today, the patient tends to minimize the circumstances of his presenting baclofen overdose. He now denies that this overdose was suicidal in nature. In the same breath however he says that his is going to leave him because of his alcohol and substance abuse issues and "I don't want to live without my ." He does endorse feeling somewhat depressed. He is motivated to get drug and alcohol treatment and is hopeful to get into a long -term rehabilitation program. He endorses a recent relapse to alcohol use and says "I don't know what drives me to drink." No hypomanic or manic symptoms. No audiovisual hallucinations. No delusional material. The remainder of the psychiatric ROS is negative. Past psychiatric history: Patient denies a history of psychiatric diagnosis. He works with a psychotherapist weekly named Torrie. He denies any psychiatric admissions. He did make a baclofen ingestion last year. He denies any history of suicide attempts. Family history: Patient denies any family history of mental illness. Chemical dependency history: Patient reports that he had been sober for the last 6 months or so before relapsing and drinking 2 pints of liquor. He also has been abusing his baclofen by his report. Social history: Patient reports that he is but owing to his substance use. He and his each have 1 child from a previous relationship. He has an associates degree. He does not presently work. He denies any or legal history. Tobacco Use In Past 30 Days: 5 or More Cigarettes/Day Alcohol Use: 2-4 Times Per Month Hospital Course Patient's depression suicidality slowly lifted through his hospital stay, he showed compliant with medication. We also met with patient's estranged gave further history related to his long problems with depression and alcohol abuse. Along with various multiple medical issues including cancer of the throat. Patient aware that his will be him. However he does have some insight into his need for further care and treatment. He is aware of his need for a rehabilitation facility to address the substance abuse issues that are: cocurring with his severe depression. A bed has been found at [facility] in [place]. Patient denies suicidality homicidality voices or visions. Patient to be discharged today to the above facility further care and attention Rx 1 month Results Blood Pressure 140 / 72 Vital Signs Date Time Temp Pulse Resp B/P Pulse Ox O2 Delivery O2 Flow Rate FiO2 08/13/16 06:26 97.1 78 18 140/72 97 Laboratory Tests Test 08/10/16 08/10/16 09:44 15:14 Platelet Count 144 TH/MM3 (150-450) Neutrophils (%) (Auto) 76.9 % (16.0-70.0) Lymphocytes # (Auto) 0.9 TH/MM3 (1.0-4.8) Chloride Level 109 MEQ/L (98-107) Estimat Glomerular Filtration 69 ML/MIN (>89) Rate Aspartate Amino Transf 41 U/L (15-37) (AST/SGOT) Total Protein 5.6 GM/DL (6.4-8.2) Albumin 3.0 GM/DL (3.4-5.0) Blood Gas HCO3 19 mmol/L (22-26) Blood Gas Base Excess -3.5 mmol/L (-2-2) Arterial Blood pH 7.55 (7.380-7.420) Arterial Blood Partial 21 mmHg (38-42) Pressure CO2 Summary of Procedures None done Pending results at discharge: No Medications # of Antipsychotic meds at D/C: 0 Approp Antipsych med options 1 - Minimum of three failed multiple trials of monotherapy. 2 - Documented plan to taper to monotherapy due to previous use of multiple meds OR cross-taper in progress at D/C. 3 - Documentation of augmentation of Clozapine. 4 - Justification other than those listed in allowable values 1-3, document here : Discharge Discharge Date: August 13, 2016 Discharge Diagnosis: (1) Major depressive disorder, recurrent severe without psychotic features Diagnosis: Principal ICD Code: F33.2 (2) Alcohol dependence Diagnosis: Secondary ICD Code: F10.20 Mental Status Exam at Disch Alert oriented white male speaking in whisper secondary to throat surgery. He has normoactive. Is euthymic to mildly dysphoric, affect shows slight decreased range and intensity. Speech is whispered though goal oriented with no formal thought disorders, no auditory or visual hallucinations, no delusions , insight and judgment is poor to fair, cognition grossly intact Pt Condition on Discharge: Stable Discharge Disposition: Discharge Home (discharged to [facility]) Discharge Instructions Diet Instructions: As Tolerated, No Restrictions Activities you can perform: Regular-No Restrictions Scheduled Appointment: [facility] Discharge Time > 30 minutes Discharge/Advance Care Plan Health Problems: (1) Major depressive disorder, recurrent severe without psychotic features (2) Polysubstance abuse (3) Hypotension Goals to promote your health * To prevent worsening of your condition and complications * To maintain your health at the optimal level Directions to meet your goals Take your medications as prescribed Follow your dietary instruction Follow activity as directed Keep your appointments as scheduled Take your immunizations and boosters as scheduled If your symptoms worsen call your PCP, if no PCP go to Urgent Care Center or Emergency Room For 20/10 questions related to your inpatient stay or results of tests pending at discharge, please contact Dr. Fredi Higginbotham at Smoking is Dangerous to Your Health. Avoid second hand smoking Fredi Higginbotham MD August 13, 2016 08:31
[2016-08-13] MEDS: NICOTINE 21 MG/24 HR PATCH T-DERMAL SCH (08:32)
[2016-08-13] MEDS: metroNIDAZOLE 500 MG TAB PO SCH (08:33)
[2016-08-13] MEDS: PANTOPRAZOLE SOD 40 MG DELAYED RELEASE TAB PO SCH (08:33)
[2016-08-13] MEDS: CHOLECALCIFEROL (VIT D3) 1000 UNIT TAB PO SCH (08:33)
[2016-08-13] MEDS: CLOPIDOGREL 75 MG TAB PO SCH (08:33)
[2016-08-13] MEDS: metFORMIN HCL 500 MG TAB PO SCH (08:34)
[2016-08-13] MEDS: LEVOTHYROXINE SODIUM 100 MCG TAB PO SCH (08:34)
[2016-08-13] MEDS: EZETIMIBE 10 MG TAB PO SCH (08:34)
[2016-08-13] MEDS: REMOVE OLD PATCH T-DERMAL SCH (08:36)
[2016-08-14 14:32] LABS: BIOAVAILABLE TESTOSTERONE 5.4 ng/dL (40-168)
== END 2016-08-13 10:20 | disposition home or self-care (01) | DRG 885 ==
LOC: H250 15:15 → H260 08-12 17:05
PROVIDERS: ADMIT Psychiatry & Neurology Psychiatry; ATTEND Psychiatry & Neurology Psychiatry
DX: F33.2 Major depressive disorder, recurrent severe without psychotic features (principal); J69.0 Pneumonitis due to inhalation of food and vomit; I95.9 Hypotension, unspecified; I65.23 Occlusion and stenosis of bilateral carotid arteries; I10 Essential (primary) hypertension; E11.9 Type 2 diabetes mellitus without complications; E03.9 Hypothyroidism, unspecified; F10.20 Alcohol dependence, uncomplicated; F17.210 Nicotine dependence, cigarettes, uncomplicated; F19.10 Other psychoactive substance abuse, uncomplicated; Z85.21 Personal history of malignant neoplasm of larynx; Z91.5 Personal history of self-harm; Z92.3 Personal history of irradiation; Z63.8 Other specified problems related to primary support group; Z79.84 Long term (current) use of oral hypoglycemic drugs; Y90.9 Presence of alcohol in blood, level not specified
CPT/HCPCS: 36600; 80048; 80053; 80061; 80076; 82306; 82607; 82652; 82746; 82805; 82948; 83036; 84402; 84403; 84439; 84443; 84481; 85025; 93005; 94640; 94664